=== PATIENT | female | born 1955 | race African-American/Black ===

== ENCOUNTER 2018-09-10 14:03 | Inpatient (IN) | payer OTHER ==
[2018-09-10 16:24] VITALS: BMI 26.6
--- NOTE | 2018-09-10 17:46 | HP ---
"CIWA Score Nausea/Vomitin-No Nausea/No Vomiting Muscle Tremors: None Anxiety: 1-Mildly Anxious Agitation: 1-Slight > Activity Paroxysmal Sweats: No Perspiration Orientation: 0-Oriented Tacttile Disturbances: 0-None Auditory Disturbances: 0-None Visual Disturbances: 0-None Headache: 2-Mild CIWA-Ar Total Score: 4 - Admission Criteria OASAS Guidelines: Admission for Medically Managed Detox: Requires at least one of the followin. CIWA greater than 12 2. Seizures within the past 24 hours 3. Delirium tremens within the past 24 hours 4. Hallucinations within the past 24 hours 5. Acute intervention needed for co occurring medical disorder 6. Acute intervention needed for co occurring psychiatric disorder 7. Severe withdrawal that cannot be handled at a lower level of care (continued vomiting, continued diarrhea, abnormal vital signs) requiring intravenous medication and/or fluids 8. Admission ROS [facility] Allergies/Adverse Reactions: Allergies Allergy/AdvReac Type Severity Reaction Status Date / Time benztropine [From Cogentin] Allergy Verified 09/10/18 17:40 naloxone [From Narcan] AdvReac Verified 09/10/18 17:40 History of Present Illness: patient reports drinking 4 x 40-oz/day , reports latest use yesterday evening , reports irritability if not drinking ,relapsed in 2005 with daily , denies seizures , blackouts , denies falls , starts drinking around 8 am . Denies other illicits . cocaine : 10 dimes/day tobacco : 1/2 ppd utox + anastasiia , + Mtd , + biup MMTP @ [facility] x 2 years PMhx : OA hips using walker for ambulation HLD, htn PSyxh : SAD Meds : Wellbutrin , Seroquel , clonidine, Norvasc i-stop This report was requested by: Jaclyn Hansen | Reference #: [id number] Others' Prescriptions Patient Name: Serena Lizarraga Date: 1955 Address: [address] [place] [address] Sex: Female Rx Written Rx Dispensed Drug Quantity Days Supply Prescriber Name 09/17/2017 09/18/2017 endocet 10-325 mg tablet 9 3 Soleimani, Alo Shx : homeless Exam Limitations: No Limitations, Physical Impairment - Ebola screening Have you traveled outside of the country in the last 21 days: No (N) Have you had contact with anyone from an Ebola affected area: No Have you been sick,other than usual withdrawal symptoms: No Do you have a fever: No - Review of Systems Constitutional: No Symptoms Reported EENT: reports: No Symptoms Reported, Other (missing teeth glasses- did not bring) Respiratory: reports: No Symptoms reported Cardiac: reports: No Symptoms Reported GI: reports: No Symptoms Reported : reports: Dysuria (reports has rx for UTI) Musculoskeletal: reports: Joint Pain (chronic hip pain) Integumentary: reports: No Symptoms Reported Neuro: reports: No Symptoms reported Endocrine: reports: No Symptoms Reported Psychiatric: reports: Orientated x3, Agitated, Anxious Patient History - Smoking Cessation Smoking history: Current every day smoker Have you smoked in the past 12 months: Yes Aproximately how many cigarettes per day: 10 Hx Chewing Tobacco Use: No Initiated information on smoking cessation: No Family Disease History - Family Disease History Family History: Denies Family Disease History: Heart Disease: Father (d.54), Other: Mother (d. 90), Brother (htn , d. 40 renal disease), Sister (htn), Daughter (DVT ) Admission Physical Exam [facility] - Vital Signs Vital Signs: Vital Signs - 24 hr 09/10/18 16:21 Temperature 97.7 F Pulse Rate 60 Respiratory 18 Rate Blood Pressure 122/84 - Physical General Appearance: Yes: Disheveled, Other (drowsy , falls asleep frequently during interview, easily awakened) HEENTM: Yes: EOMI, Hearing grossly Normal, Normal ENT Inspection, Normocephalic , Other (edentulous) Respiratory: Yes: Chest Non-Tender, Lungs Clear, Normal Breath Sounds Neck: Yes: No masses,lesions,Nodules, Trachea in good position Breast: Yes: Breast Exam Deferred Cardiology: Yes: Regular Rhythm, Regular Rate, S1, S2 Abdominal: Yes: Normal Bowel Sounds, Soft Genitourinary: Yes: Within Normal Limits Musculoskeletal: Yes: Joint Stiffness, Other (chronic hip pain , antalgic gait, using walker for ambulation and balance stability) Extremities: Yes: Normal Capillary Refill Neurological: Yes: Motor Strength 5/5, Other (drowsy) Integumentary: Yes: Within Normal Limits Lymphatic: Yes: Within Normal Limits - Diagnostic (1) Cocaine dependence Current Visit: Yes Status: Acute Qualifiers: Substance use status: uncomplicated Qualified Code(s): F14.20 - Cocaine dependence, uncomplicated [facility] Breath Alcohol Content Breath Alcohol Content: 0 Urine Pregancy Test - Result Urine Test Results: Negative- NO Line Present Urine Drug Screen - Results Drug Screen Negative: No Urine Drug Screen Results: ANASTASIIA-Cocaine, MTD-Methadone, BUP-Suboxone Inpatient Rehab Admission - Initial Determination Are CD services needed?: Yes Free of communicable disease: Yes Not in need of hospitalization: Yes - Rehab Admission Criteria Previous failed treatment: Yes Poor recovery environment: Yes Comorbidities: Yes Lacks judgement: Yes Patient is meeting Inpatient Rehab admission criteria:: Yes"
[2018-09-10] MEDS ORDERED: MAGNESIUM CITRATE 300 ML BOTTLE PO PRN (18:32)
[2018-09-10] MEDS ORDERED: MAGNESIUM HYDROX 2400MG/30ML ORAL SUSPENSION 30 ML CUP PO PRN (18:32)
[2018-09-10] MEDS ORDERED: ACETAMINOPHEN 325 MG TABLET (FP) PO PRN (18:32)
[2018-09-10] MEDS ORDERED: MENTHOL/PHENOL 1 EACH UD MM PRN (18:32)
[2018-09-10] MEDS ORDERED: guaiFENesin/D-METHORPHAN HB 10 ML UNIT-DOSE CUPS PO PRN (18:32)
[2018-09-10] MEDS ORDERED: MAG HYDROX/AL HYDROX/SIMETH 30 ML UNIT-DOSE CUP PO PRN (18:32)
[2018-09-11 01:35] LABS: URINE APPEARANCE SLCLOUDY; URINE BILIRUBIN NEGATIVE (<2.0 mg/dL); URINE COLOR DKYELLOW; URINE GLUCOSE (UA) NEGATIVE (NEGATIVE); URINE KETONE NEGATIVE (NEGATIVE); URINE LEUK ESTERASE TRACE (NEGATIVE); URINE NITRITE NEGATIVE (NEGATIVE); URINE PROTEIN NEGATIVE (NEGATIVE)
[2018-09-11 02:04] LABS: CALCIUM OXALATE CRYSTALS RARE /hpf (NONE SEEN); EPI CELLS RARE /HPF (FEW); URINE BACTERIA RARE /hpf (NONE SEEN); URINE HYALINE CAST 3 /lpf; URINE MUCUS RARE
[2018-09-11] MEDS ORDERED: cloNIDine HCL 0.1 MG TABLET PO ONE (06:44)
--- NOTE | 2018-09-11 06:45 | PN ---
S Progress Note Note: Patient's blood pressure is B/P 159/110. Patient is asymptomatic Vital Signs Temperature 97.5 F L 09/11/18 06:47 Pulse Rate 63 09/11/18 06:47 Respiratory Rate 18 09/11/18 06:47 Blood Pressure 159/110 H 09/11/18 06:47 O2 Sat by Pulse Oximetry (%) Action: Clonidine 0.1mg 1 tablet oral ordered
[2018-09-11] MEDS ORDERED: METHADONE HCL 10 MG TABLET PO SCH (07:15)
[2018-09-11] MEDS ORDERED: METHADONE HCL 10 MG TABLET ONE (07:24)
[2018-09-11] MEDS ORDERED: METHADONE HCL 40 MG DISPERSABLE TABLET ONE (07:24)
[2018-09-11] MEDS: METHADONE 120 MG, METHADONE 30 MG PO SCH (07:30)
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
[2018-09-11] MEDS: PRENATAL VITAMINS W/ FOLIC ACID TABLET (FP) PO SCH (10:00)
[2018-09-11] MEDS: hydrOXYzine PAMOATE 25 MG CAPSULE (FP) PO PRN (10:01)
[2018-09-11 14:55] LABS: HEMATOCRIT 36.5 % (32.4-45.2); HEMOGLOBIN 11.3 GM/dL (10.7-15.3); MCHC 31.1 g/dl (32.0-36.0); MEAN PLT VOLUME 9.5 fl (7.5-11.1); PLATELET COUNT 233 K/MM3 (134-434); RBC 4.05 M/mm3 (3.60-5.2); RDW 15.8 % (11.6-15.6); WHITE BLOOD COUNT 6.6 K/mm3 (4.0-10.0)
[2018-09-11 15:56] LABS: ALBUMIN 3.4 g/dl (3.4-5.0); ALK PHOS 152 U/L (45-117); ANION GAP 4 MMOL/L (8-16); BILIRUBIN,TOTAL 0.3 mg/dL (0.2-1); BLOOD UREA NITROGEN 13 mg/dL (7-18); CALCIUM 8.9 mg/dL (8.5-10.1); CHLORIDE 108 mmol/L (98-107); CO2 30 mmol/L (21-32); GLUCOSE,RANDOM 98 mg/dL (74-106); POTASSIUM 4.1 mmol/L (3.5-5.1); SGOT/AST 32 U/L (15-37); SGPT/ALT 33 U/L (13-61); SODIUM 142 mmol/L (136-145)
[2018-09-11 15:57] LABS: TOT PROT 6.8 g/dl (6.4-8.2)
[2018-09-11] MEDS: THIAMINE HCL 100 MG TABLET (FP) PO SCH (21:46)
[2018-09-11] MEDS: QUEtiapine FUMARATE 200 MG TABLET PO SCH (21:46)
[2018-09-12] MEDS: THIAMINE HCL 100 MG TABLET (FP) PO SCH ×2 (01:48→21:52)
[2018-09-12] MEDS ORDERED: METHADONE HCL 10 MG TABLET ONE (02:49)
[2018-09-12] MEDS ORDERED: METHADONE HCL 40 MG DISPERSABLE TABLET ONE (02:50)
[2018-09-12] MEDS: METHADONE 120 MG, METHADONE 30 MG PO SCH (06:36)
[2018-09-12] MEDS: amLODIPine BESYLATE 10 MG TABLET (FP) PO SCH (07:00)
--- NOTE | 2018-09-12 07:34 | PN ---
[facility] Progress Note Note: seen for elevated asymptomatic b/p. client reports she wants her clonidine. she also states other home meds were not ordered to include simvastatin, norvasc, asa. after reviewing client external pharmacy it appears client is dr. ramos for the clonidine. ? diversion due to multiple rx for clonidines for different doses written days apart from different providers is noted. d/w client will restart her rx for amlodipine, asa, and will give lipitor in replace of her simvastatin since it is non formulary (actually the external pharmacy shows that the patient is on lipitor 20mg not simvastatin 40 mg). client is concerned about her clonidine being abruptly stopped. d/w client provider is fully aware of the possible effects will will continue to monitor b/ p closely and treat accordingly. client is dissatisfied with providers decision and states she will follow up with the unit provider. Vital Signs (72 hours) 09/10/18 09/11/18 09/11/18 16:21 00:30 03:30 Temperature 97.7 F Pulse Rate 60 Respiratory 18 18 20 Rate Blood Pressure 122/84 09/11/18 09/11/18 09/11/18 06:47 07:11 09:00 Temperature 97.5 F L 97.5 F L Pulse Rate 63 63 50 L Respiratory 18 18 Rate Blood Pressure 159/110 H 159/110 H 119/73 09/12/18 09/12/18 09/12/18 00:30 03:30 07:28 Temperature 97.3 F L Pulse Rate 63 Respiratory 16 16 18 Rate Blood Pressure 153/111 H client is a/o x3 nad ambulating hallway with rolling walker w/o difficulty. she denies sob, c.p., visual disturbance and headache. will increase b/p monitoring to q shift
[2018-09-12] MEDS: ASPIRIN 81 MG CHEWABLE TABLETS PO SCH (10:03)
[2018-09-12] MEDS: PRENATAL VITAMINS W/ FOLIC ACID TABLET (FP) PO SCH (10:03)
[2018-09-12] MEDS: ATORVASTATIN CA 20 MG TABLET (FP) PO SCH (21:52)
[2018-09-12] MEDS: QUEtiapine FUMARATE 200 MG TABLET PO SCH (21:52)
[2018-09-12] MEDS: hydrOXYzine PAMOATE 25 MG CAPSULE (FP) PO PRN (21:52)
[2018-09-13] MEDS ORDERED: METHADONE HCL 10 MG TABLET ONE (03:44)
[2018-09-13] MEDS ORDERED: METHADONE HCL 40 MG DISPERSABLE TABLET ONE (03:45)
[2018-09-13] MEDS: METHADONE 120 MG, METHADONE 30 MG PO SCH (06:03)
[2018-09-13] MEDS: PRENATAL VITAMINS W/ FOLIC ACID TABLET (FP) PO SCH (10:25)
[2018-09-13] MEDS: hydrOXYzine PAMOATE 25 MG CAPSULE (FP) PO PRN ×2 (10:25→21:37)
[2018-09-13] MEDS: ASPIRIN 81 MG CHEWABLE TABLETS PO SCH (10:25)
[2018-09-13] MEDS: amLODIPine BESYLATE 10 MG TABLET (FP) PO SCH (10:25)
[2018-09-13] MEDS ORDERED: PT OWN MED DRAWER 7, Y5N ONE ×6 (11:09→14:49)
[2018-09-13] MEDS: THIAMINE HCL 100 MG TABLET (FP) PO SCH (21:31)
[2018-09-13] MEDS: ATORVASTATIN CA 20 MG TABLET (FP) PO SCH (21:31)
[2018-09-13] MEDS: QUEtiapine FUMARATE 200 MG TABLET PO SCH (21:31)
[2018-09-13] MEDS: cloNIDine HCL 0.1 MG TABLET PO PRN (21:35)
[2018-09-14] MEDS ORDERED: METHADONE HCL 40 MG DISPERSABLE TABLET ONE (03:12)
[2018-09-14] MEDS ORDERED: METHADONE HCL 10 MG TABLET ONE (03:12)
[2018-09-14] MEDS: METHADONE 120 MG, METHADONE 30 MG PO SCH (06:06)
[2018-09-14] MEDS: cloNIDine HCL 0.1 MG TABLET PO PRN ×2 (10:10→21:25)
[2018-09-14] MEDS: hydrOXYzine PAMOATE 25 MG CAPSULE (FP) PO PRN ×2 (10:10→21:25)
[2018-09-14] MEDS: PRENATAL VITAMINS W/ FOLIC ACID TABLET (FP) PO SCH (10:10)
[2018-09-14] MEDS: amLODIPine BESYLATE 10 MG TABLET (FP) PO SCH (10:10)
[2018-09-14] MEDS: ASPIRIN 81 MG CHEWABLE TABLETS PO SCH (10:10)
[2018-09-14] MEDS ORDERED: PT OWN MED DRAWER 7, Y5N ONE (10:43)
[2018-09-14] MEDS: QUEtiapine FUMARATE 200 MG TABLET PO SCH (21:25)
[2018-09-14] MEDS: ATORVASTATIN CA 20 MG TABLET (FP) PO SCH (21:25)
[2018-09-14] MEDS: THIAMINE HCL 100 MG TABLET (FP) PO SCH (21:26)
--- NOTE | 2018-09-14 21:46 | PN ---
S Progress Note Note: Patient requesting to be returned to CloNidine 0.2 mg as prescribed by her PCP instead of 0.1. Reviewed vital signs and medication management. Patient informed that CloNidine will be held if SBP falls below 110. Patient verbalizes an understanding.
[2018-09-14] MEDS: cloNIDine HCL 0.1 MG TABLET PO SCH (22:12)
[2018-09-15] MEDS ORDERED: METHADONE HCL 10 MG TABLET ONE (02:41)
[2018-09-15] MEDS ORDERED: METHADONE HCL 40 MG DISPERSABLE TABLET ONE (02:41)
[2018-09-15] MEDS: METHADONE 120 MG, METHADONE 30 MG PO SCH (06:10)
[2018-09-15] MEDS: cloNIDine HCL 0.1 MG TABLET PO SCH ×2 (09:48→21:28)
[2018-09-15] MEDS: ASPIRIN 81 MG CHEWABLE TABLETS PO SCH (09:48)
[2018-09-15] MEDS: PRENATAL VITAMINS W/ FOLIC ACID TABLET (FP) PO SCH (09:48)
[2018-09-15] MEDS: amLODIPine BESYLATE 10 MG TABLET (FP) PO SCH (09:48)
[2018-09-15] MEDS: hydrOXYzine PAMOATE 25 MG CAPSULE (FP) PO PRN ×2 (09:48→21:28)
[2018-09-15] MEDS: THIAMINE HCL 100 MG TABLET (FP) PO SCH (21:28)
[2018-09-15] MEDS: QUEtiapine FUMARATE 200 MG TABLET PO SCH (21:28)
[2018-09-15] MEDS: ATORVASTATIN CA 20 MG TABLET (FP) PO SCH (21:28)
[2018-09-16] MEDS ORDERED: METHADONE HCL 40 MG DISPERSABLE TABLET ONE (02:38)
[2018-09-16] MEDS ORDERED: METHADONE HCL 10 MG TABLET ONE (02:38)
[2018-09-16] MEDS: METHADONE 120 MG, METHADONE 30 MG PO SCH (06:13)
[2018-09-16] MEDS: hydrOXYzine PAMOATE 25 MG CAPSULE (FP) PO PRN ×3 (06:15→22:14)
[2018-09-16] MEDS ORDERED: cloNIDine HCL 0.1 MG TABLET PO ONE ×2 (07:53→07:54)
--- NOTE | 2018-09-16 07:59 | PN ---
[facility] Progress Note Note: Patient's blood pressure at 6.00am was B/P 158/96. Patient was medicated and informed to recheck blood pressure. Patient's blood pressure was rechecked and is mow B/P 164/108. Vital Signs 09/16/18 09/16/18 09/16/18 03:18 06:00 07:25 Temperature 97.6 F Pulse Rate 62 73 Respiratory 18 18 18 Rate Blood Pressure 158/96 160/108 H Action: Clonidine 0.2mg tablet oral ordered.
[2018-09-16] MEDS: ASPIRIN 81 MG CHEWABLE TABLETS PO SCH (09:49)
[2018-09-16] MEDS: amLODIPine BESYLATE 10 MG TABLET (FP) PO SCH (09:49)
[2018-09-16] MEDS: PRENATAL VITAMINS W/ FOLIC ACID TABLET (FP) PO SCH (09:49)
[2018-09-16] MEDS: cloNIDine HCL 0.1 MG TABLET PO SCH ×2 (09:49→22:13)
--- NOTE | 2018-09-16 13:42 | PN ---
[facility] Progress Note Note: Patient told telegraphic typewriter repairer that she was on Seroquel 200 mg po BID before admission and requests that her medication dosage be adjusted to reflect that
[2018-09-16] MEDS: QUEtiapine FUMARATE 200 MG TABLET PO SCH ×2 (15:01→22:13)
[2018-09-16] MEDS: THIAMINE HCL 100 MG TABLET (FP) PO SCH (22:12)
[2018-09-16] MEDS: ATORVASTATIN CA 20 MG TABLET (FP) PO SCH (22:13)
[2018-09-16] MEDS ORDERED: PT OWN MED DRAWER 7, Y5N ONE (23:13)
[2018-09-17] MEDS ORDERED: METHADONE HCL 40 MG DISPERSABLE TABLET ONE (06:31)
[2018-09-17] MEDS ORDERED: METHADONE HCL 10 MG TABLET ONE (06:31)
[2018-09-17] MEDS: METHADONE 120 MG, METHADONE 30 MG PO SCH (06:47)
[2018-09-17] MEDS: hydrOXYzine PAMOATE 25 MG CAPSULE (FP) PO PRN ×3 (06:52→21:19)
[2018-09-17] MEDS: cloNIDine HCL 0.1 MG TABLET PO SCH ×2 (09:08→21:17)
[2018-09-17] MEDS: ASPIRIN 81 MG CHEWABLE TABLETS PO SCH (09:08)
[2018-09-17] MEDS: PRENATAL VITAMINS W/ FOLIC ACID TABLET (FP) PO SCH (09:08)
[2018-09-17] MEDS: QUEtiapine FUMARATE 200 MG TABLET PO SCH ×2 (09:08→21:17)
[2018-09-17] MEDS: amLODIPine BESYLATE 10 MG TABLET (FP) PO SCH (09:08)
[2018-09-17] MEDS: P-EPHED 60MG/TRIPROLIDI 2.5MG TABLET PO PRN ×2 (09:12→21:20)
[2018-09-17] MEDS ORDERED: PT OWN MED DRAWER 7, Y5N ONE ×2 (09:14→09:51)
--- NOTE | 2018-09-17 14:22 | PN ---
[facility] Progress Note Note: PT TOLD NURSE SHE WANTS TO TALK ABOUT UTI. PT DID NOT REPORT ANY SPECIFIC SYMPTOM AT THIS TIME. Vital Signs 09/17/18 09/17/18 09/17/18 06:58 09:13 14:07 Temperature 97.5 F L Pulse Rate 79 62 67 Respiratory 18 18 17 Rate Blood Pressure 166/98 167/94 123/80 Laboratory Tests 09/10/18 09/11/18 09/11/18 23:45 09:30 09:30 WBC 6.6 RBC 4.05 Hgb 11.3 Hct 36.5 MCV 90.0 MCH 28.0 MCHC 31.1 L RDW 15.8 H Plt Count 233 MPV 9.5 Sodium 142 Potassium 4.1 Chloride 108 H Carbon Dioxide 30 Anion Gap 4 L BUN 13 Creatinine 1.0 Creat Clearance w eGFR 55.82 Random Glucose 98 Calcium 8.9 Total Bilirubin 0.3 AST 32 ALT 33 Alkaline Phosphatase 152 H Total Protein 6.8 Albumin 3.4 Urine Color Dkyellow Urine Appearance Slcloudy Urine pH 6.0 Ur Specific [place] 1.015 Urine Protein Negative Urine Glucose (UA) Negative Urine Ketones Negative Urine Blood Negative Urine Nitrite Negative Urine Bilirubin Negative Urine Urobilinogen 2.0 H Ur Leukocyte Esterase Trace Urine WBC (Auto) 2 Urine RBC (Auto) 2 Ur Epithelial Cells Rare Calcium Oxalate Crystal Rare Urine Bacteria Rare Hyaline Casts 3 Urine Mucus Rare RPR Titer 09/11/18 09:30 WBC RBC Hgb Hct MCV MCH MCHC RDW Plt Count MPV Sodium Potassium Chloride Carbon Dioxide Anion Gap BUN Creatinine Creat Clearance w eGFR Random Glucose Calcium Total Bilirubin AST ALT Alkaline Phosphatase Total Protein Albumin Urine Color Urine Appearance Urine pH Ur Specific [place] Urine Protein Urine Glucose (UA) Urine Ketones Urine Blood Urine Nitrite Urine Bilirubin Urine Urobilinogen Ur Leukocyte Esterase Urine WBC (Auto) Urine RBC (Auto) Ur Epithelial Cells Calcium Oxalate Crystal Urine Bacteria Hyaline Casts Urine Mucus RPR Titer Nonreactive LAB REVIEWED ABOVE. PLAN: PT TO REPEAT UA, AND DO UC TO R/O UTI PER PT'S CONCERN.
[2018-09-17] MEDS ORDERED: PANTOPRAZOLE 40 MG TABLET (FP) PO ONE (15:15)
[2018-09-17] MEDS: IBUPROFEN 400 MG TABLET (FP) PO PRN (15:31)
[2018-09-17] MEDS: THIAMINE HCL 100 MG TABLET (FP) PO SCH (21:16)
[2018-09-17] MEDS: ATORVASTATIN CA 20 MG TABLET (FP) PO SCH (21:17)
[2018-09-18] MEDS ORDERED: METHADONE HCL 10 MG TABLET ONE (03:09)
[2018-09-18] MEDS ORDERED: METHADONE HCL 40 MG DISPERSABLE TABLET ONE (03:09)
[2018-09-18] MEDS: METHADONE 120 MG, METHADONE 30 MG PO SCH (06:13)
[2018-09-18] MEDS: cloNIDine HCL 0.1 MG TABLET PO SCH ×2 (06:14→18:07)
[2018-09-18] MEDS: amLODIPine BESYLATE 10 MG TABLET (FP) PO SCH (09:41)
[2018-09-18] MEDS: QUEtiapine FUMARATE 200 MG TABLET PO SCH ×2 (09:41→21:05)
[2018-09-18] MEDS: PRENATAL VITAMINS W/ FOLIC ACID TABLET (FP) PO SCH (09:42)
[2018-09-18] MEDS: PANTOPRAZOLE 40 MG TABLET (FP) PO SCH (09:42)
[2018-09-18] MEDS: ASPIRIN 81 MG CHEWABLE TABLETS PO SCH (09:42)
[2018-09-18] MEDS: hydrOXYzine PAMOATE 25 MG CAPSULE (FP) PO PRN ×2 (09:44→18:09)
[2018-09-18] MEDS: P-EPHED 60MG/TRIPROLIDI 2.5MG TABLET PO PRN (09:45)
[2018-09-18 17:44] LABS: URINE APPEARANCE CLEAR; URINE BILIRUBIN NEGATIVE (<2.0 mg/dL); URINE COLOR LTYELLOW; URINE GLUCOSE (UA) NEGATIVE (NEGATIVE); URINE KETONE NEGATIVE (NEGATIVE); URINE LEUK ESTERASE NEGATIVE (NEGATIVE); URINE NITRITE NEGATIVE (NEGATIVE); URINE PROTEIN NEGATIVE (NEGATIVE); URINE UROBILINOGEN NEGATIVE mg/dL (0.2-1.0)
[2018-09-18] MEDS: IBUPROFEN 400 MG TABLET (FP) PO PRN (18:10)
[2018-09-18] MEDS: ATORVASTATIN CA 20 MG TABLET (FP) PO SCH (21:05)
[2018-09-18] MEDS: THIAMINE HCL 100 MG TABLET (FP) PO SCH (21:05)
[2018-09-18] MEDS: MELATONIN 5 MG TABLETS PO PRN (21:06)
[2018-09-19] MEDS ORDERED: METHADONE HCL 10 MG TABLET ONE (03:21)
[2018-09-19] MEDS ORDERED: METHADONE HCL 40 MG DISPERSABLE TABLET ONE (03:21)
[2018-09-19] MEDS: METHADONE 120 MG, METHADONE 30 MG PO SCH (06:11)
[2018-09-19] MEDS: cloNIDine HCL 0.1 MG TABLET PO SCH ×2 (06:12→18:09)
[2018-09-19] MEDS: IBUPROFEN 400 MG TABLET (FP) PO PRN (06:13)
[2018-09-19] MEDS: ASPIRIN 81 MG CHEWABLE TABLETS PO SCH (09:26)
[2018-09-19] MEDS: QUEtiapine FUMARATE 200 MG TABLET PO SCH ×2 (09:27→21:18)
[2018-09-19] MEDS: amLODIPine BESYLATE 10 MG TABLET (FP) PO SCH (09:27)
[2018-09-19] MEDS: PANTOPRAZOLE 40 MG TABLET (FP) PO SCH (09:27)
[2018-09-19] MEDS: PRENATAL VITAMINS W/ FOLIC ACID TABLET (FP) PO SCH (09:27)
[2018-09-19] MEDS: hydrOXYzine PAMOATE 25 MG CAPSULE (FP) PO PRN ×2 (09:28→18:09)
[2018-09-19] MEDS: P-EPHED 60MG/TRIPROLIDI 2.5MG TABLET PO PRN ×2 (09:29→21:18)
--- NOTE | 2018-09-19 10:46 | PN ---
Psychiatric Progress Note Vital Signs: Vital Signs Period Temp Pulse Resp BP Sys/Roque Pulse Ox Last 24 Hr 97.7 F 67-79 -18 148-191/90-102 Date of Session: 09/19/18 Chief Complaint:: Discharge Note HPI: Patient addressing Alcohol and Cocaine Dependence comorbid with Opioid Dependence on Agonist Therapy, Nicotine Dependence, Schizoaffective Disorder, Substance-Induced Mood Disorder and Substance-Induced Sleep Disorder ROS: HTN, HLD, Osteoarthritis of both hips Current Medications: Active Medications Generic Name Dose Route Start Last Admin Trade Name Freq PRN Reason Stop Dose Admin Acetaminophen 650 mg 09/10/18 18:32 Tylenol - PO Q4H PRN FEVER Al Hydroxide/Mg Hydroxide 30 ml 09/10/18 18:32 Mylanta Oral Suspension - PO Q6H PRN DYSPEPSIA Amlodipine Besylate 10 mg 09/12/18 07:00 09/19/18 09:27 Norvasc - PO 10 mg DAILY ARGELIA Administration Aspirin 81 mg 09/12/18 10:00 09/19/18 09:26 Asa - PO 81 mg DAILY ARGELIA Administration Atorvastatin Calcium 20 mg 09/12/18 22:00 09/18/18 21:05 Lipitor - PO 20 mg HS ARGELIA Administration Bupropion HCl 300 mg 09/11/18 14:00 09/19/18 09:27 Wellbutrin Xl - PO 300 mg DAILY ARGELIA Administration Clonidine 0.2 mg 09/18/18 06:00 09/19/18 06:12 Catapres - PO 0.2 mg BID@0600,1800 ARGELIA Administration Eucalyptus/Menthol/Phenol/Sorbitol 1 each 09/10/18 18:32 Cepastat Lozenge - MM Q4H PRN SORE THROAT Guaifenesin 10 ml 09/10/18 18:32 Robitussin Dm - PO Q6H PRN COUGH Hydroxyzine Pamoate 25 mg 09/10/18 18:32 09/19/18 09:28 Vistaril - PO 25 mg Q4H PRN Administration AGITATION Ibuprofen 400 mg 09/10/18 18:32 09/19/18 06:13 Motrin - PO 400 mg Q6H PRN Administration Pain level 4-6 Magnesium Citrate 300 ml 09/10/18 18:32 Citroma - PO Q48H PRN CONSTIPATION Magnesium Hydroxide 30 ml 09/10/18 18:32 Milk Of Magnesia - PO DAILY PRN CONSTIPATION Melatonin 5 mg 09/10/18 22:00 09/18/18 21:06 Melatonin PO 5 mg HS PRN Administration INSOMNIA Methadone HCl 120 mg/ 150 mg 09/17/18 06:00 09/19/18 06:11 Methadone HCl 30 mg PO 150 mg DAILY@0600 ARGELIA Administration Pantoprazole Sodium 40 mg 09/18/18 10:00 09/19/18 09:27 Protonix - PO 40 mg DAILY ARGELIA Administration Multivit/Folic Acid/Iron 1 tab 09/11/18 10:00 09/19/18 09:27 Vitamins (Sjr) - PO 1 tab DAILY ARGELIA Administration Pseudoephedrine/Triprolidine 1 combo 09/10/18 18:32 09/19/18 09:29 Actifed - PO 1 combo TID PRN Administration NASAL CONGESTION Quetiapine Fumarate 200 mg 09/16/18 14:40 09/19/18 09:27 Seroquel - PO 200 mg BID ARGELIA Administration Thiamine HCl 100 mg 09/10/18 22:00 09/18/18 21:05 Vitamin B1 - PO 100 mg HS ARGELIA Administration Current Side Effect: No Lab tests ordered: Yes Lab tests reviewed: Yes Provider note:: Patient will complete this program on 09/20/18. She has met her treatment goals and will continue to address her issues in outpatient treatment at [facility]. Told rewriter that from her participation in this program, she has learned that she can fight her addiction if she puts her mind to it. She responded well to Seroquel 200 mg po BID and Wellbutrin Xl 300 mg po daily. Scripts for 30 days supply of these medications will be electronically transmitted to [facility] at [address] [place] [address]. She is stable for discharge on 09/20/18 Total face to face time:: 35 Mental Status Exam - Mental Status Exam Alert and Oriented to: Time, Place, Person Cognitive Function: Fair Patient Appearance: Well Groomed Mood: Hopeful, Euthymic Affect: Appropriate Patient Behavior: Cooperative Speech Pattern: Clear Voice Loudness: Normal Thought Process: Intact, Goal Oriented Thought Disorder: Not Present Hallucinations: Denies Suicidal Ideation: Denies Homicidal Ideation: Denies Insight/Judgement: Fair Sleep: Fair Appetite: Good Muscle strength/Tone: Normal Gait/Station: Other (uses a wheeled walker as ambulatory aid) Psychiatric Treatment Plan - Problem List (1) Alcohol dependence Current Visit: Yes (2) Cocaine dependence Current Visit: Yes Qualifiers: Substance use status: uncomplicated Qualified Code(s): F14.20 - Cocaine dependence, uncomplicated (3) Nicotine dependence Current Visit: Yes (4) Schizoaffective disorder Current Visit: Yes (5) Substance induced mood disorder Current Visit: Yes (6) Substance-induced sleep disorder Current Visit: Yes (7) HTN (hypertension) Current Visit: Yes (8) HLD (hyperlipidemia) Current Visit: Yes (9) Osteoarthritis of both hips Current Visit: Yes Initial treatment plan: Patient will be discharged tomorrow and referred to [facility] for [facility] treatment
[2018-09-19] MEDS: DICLOFENAC SODIUM 75 MG TABLET.DR PO SCH ×2 (18:20→21:19)
--- NOTE | 2018-09-19 19:43 | PN ---
[facility] Progress Note (SOAP) Subjective: c/o (R) hip pain. States it's worse. States pain is sharp, continuous and a "10 ". Discussed pain management medications and patient feels that diclofenac would work well for her. BLE edema pitting toes to below knees. Pedal pulses (+). States is aware that legs are swollen but refused a water pill when suggested by this provider, despite being informed of the benefits. Continue to use walker for mobility.
--- NOTE | 2018-09-19 19:46 | PN ---
S Progress Note Note: c/o (R) hip pain. States it's worse. States pain is sharp, continuous and a "10 ". Discussed pain management medications and patient feels that diclofenac would work well for her. BLE edema pitting toes to below knees. Pedal pulses (+). States is aware that legs are swollen but refused a water pill when suggested by this provider, despite being informed of the benefits. Continue to use walker for mobility. Continue low sodium diet. Continue rehab.
[2018-09-19] MEDS: THIAMINE HCL 100 MG TABLET (FP) PO SCH (21:17)
[2018-09-19] MEDS: MELATONIN 5 MG TABLETS PO PRN (21:17)
[2018-09-19] MEDS: ATORVASTATIN CA 20 MG TABLET (FP) PO SCH (21:18)
[2018-09-20] MEDS ORDERED: METHADONE HCL 40 MG DISPERSABLE TABLET ONE (05:48)
[2018-09-20] MEDS ORDERED: METHADONE HCL 10 MG TABLET ONE (05:48)
[2018-09-20] MEDS: METHADONE 120 MG, METHADONE 30 MG PO SCH (06:00)
[2018-09-20] MEDS: cloNIDine HCL 0.1 MG TABLET PO SCH (06:00)
[2018-09-20] MEDS: hydrOXYzine PAMOATE 25 MG CAPSULE (FP) PO PRN (06:04)
[2018-09-20 06:58] VITALS: TEMP 97.3
[2018-09-20] MEDS ORDERED: PT OWN MED DRAWER 7, Y5N ONE (08:13)
[2018-09-20] MEDS: DICLOFENAC SODIUM 75 MG TABLET.DR PO SCH (09:03)
[2018-09-20] MEDS: amLODIPine BESYLATE 10 MG TABLET (FP) PO SCH (09:04)
[2018-09-20] MEDS: PRENATAL VITAMINS W/ FOLIC ACID TABLET (FP) PO SCH (09:04)
[2018-09-20] MEDS: PANTOPRAZOLE 40 MG TABLET (FP) PO SCH (09:04)
[2018-09-20] MEDS: QUEtiapine FUMARATE 200 MG TABLET PO SCH (09:04)
[2018-09-20] MEDS: ASPIRIN 81 MG CHEWABLE TABLETS PO SCH (09:04)
[2018-09-20 09:06] VITALS: BP 156/88; PULSE 80
== END 2018-09-20 09:06 | disposition home or self-care (01) | DRG 772 ==
LOC: YASAS 14:03 → Y3W 18:56 → Y3E 09-16 22:32
PROVIDERS: ADMIT Psychiatry & Neurology Psychiatry; ATTEND Psychiatry & Neurology Psychiatry
PROC: HZ42ZZZ Group Counseling for Substance Abuse Treatment, Cognitive-Behavioral (ICD-10-PCS; principal; 2018-09-10)
DX: F10.20 Alcohol dependence, uncomplicated (principal); F14.20 Cocaine dependence, uncomplicated; F17.210 Nicotine dependence, cigarettes, uncomplicated; F25.9 Schizoaffective disorder, unspecified; F19.24 Other psychoactive substance dependence with psychoactive substance-induced mood disorder; F19.282 Other psychoactive substance dependence with psychoactive substance-induced sleep disorder; I10 Essential (primary) hypertension; E78.5 Hyperlipidemia, unspecified; M16.0 Bilateral primary osteoarthritis of hip; M25.551 Pain in right hip; R60.9 Edema, unspecified; J45.909 Unspecified asthma, uncomplicated; Z88.8 Allergy status to other drugs, medicaments and biological substances
CPT/HCPCS: 36415; 80053; 81003; 81015; 85027; 86593; 87086; J0735

== ENCOUNTER 2018-10-17 16:02 | Inpatient (IN) | payer OTHER ==
[2018-10-17 17:54] VITALS: BMI 27.4
--- NOTE | 2018-10-17 18:27 | HP ---
CIWA Score Nausea/Vomitin-Mild Nausea/No Vomiting Muscle Tremors: 2 Anxiety: 2 Agitation: 2 Paroxysmal Sweats: 2 Orientation: 1-Uncertain about Date Tacttile Disturbances: 1-Very Mild Itch/Numbness Auditory Disturbances: 1-Very Mild Visual Disturbances: 1-Very Mild Sensitivity Headache: 1-Very Mild CIWA-Ar Total Score: 14 - Admission Criteria [facility]ASAS Guidelines: Admission for Medically Managed Detox: Requires at least one of the followin. CIWA greater than 12 2. Seizures within the past 24 hours 3. Delirium tremens within the past 24 hours 4. Hallucinations within the past 24 hours 5. Acute intervention needed for co occurring medical disorder 6. Acute intervention needed for co occurring psychiatric disorder 7. Severe withdrawal that cannot be handled at a lower level of care (continued vomiting, continued diarrhea, abnormal vital signs) requiring intravenous medication and/or fluids 8. Admission ROS [facility] Chief Complaint: WITHDRAWAL SYMPTOMS Allergies/Adverse Reactions: Allergies Allergy/AdvReac Type Severity Reaction Status Date / Time benztropine [From Cogentin] Allergy Verified 09/10/18 17:40 naloxone [From Narcan] AdvReac Verified 09/10/18 17:40 History of Present Illness: 53 Y.O. WOMAN WITH A HISTORY ALCOHOL AND COCAINE DEPENDENCE IS HERE SEEKING DETOX SERVICES. SHE REPORTS SHE LAST COMPLETED DETOX IN 2010. SHE WAS LAST HERE FOR REHAB FROM 09/10/18-08/2818. SHE IS CURRENTLY ENROLLED AT [facility]; SHE STATES SHE LAST MEDICATED TODAY (10/17/18) WITH 150MG OF METHADONE. Exam Limitations: Physical Impairment (AMBULATES WITH THE USE OF A WALKER) - Ebola screening Have you traveled outside of the country in the last 21 days: No Have you had contact with anyone from an Ebola affected area: No Have you been sick,other than usual withdrawal symptoms: No Do you have a fever: No - Review of Systems Constitutional: Chills EENT: reports: Double Vision, Tearing, Nose Congestion Respiratory: reports: No Symptoms reported Cardiac: reports: No Symptoms Reported GI: reports: No Symptoms Reported : reports: No Symptoms Reported Musculoskeletal: reports: No Symptoms Reported Integumentary: reports: No Symptoms Reported Neuro: reports: Tremors Endocrine: reports: No Symptoms Reported Hematology: reports: No Symptoms Reported Psychiatric: reports: Anxious, other (SCHIZOPHRENIA) Other Systems: Reviewed and Negative Patient History - Patient Medical History Hx Anemia: Yes Hx Asthma: No Hx Chronic Obstructive Pulmonary Disease (COPD): No Hx Cancer: No Hx Cardiac Disorders: No Hx Congestive Heart Failure: No Hx Hypertension: Yes Hx Hypercholesterolemia: Yes Hx Pacemaker: No HX Cerebrovascular Accident: No Hx Seizures: No Hx Dementia: No Hx Diabetes: No Hx Gastrointestinal Disorders: Yes Hx Liver Disease: No Hx Genitourinary Disorders: No Hx Sexually Transmitted Disorders: No Hx Renal Disease (ESRD): No Hx Thyroid Disease: No Hx Human Immunodeficiency Virus (HIV): No Hx Hepatitis C: Yes (UNTREATED) Hx Depression: No Hx Suicide Attempt: No Hx Bipolar Disorder: No Hx Schizophrenia: Yes - Patient Surgical History Past Surgical History: Yes Hx Orthopedic Surgery: Yes (RIGHT KNEE 1993) Anesthesia Reaction: No - PPD History Previous Implant?: Yes Documented Results: Negative w/proof Implanted On Prior [facility] Admission?: Yes Date: 09/13/18 Results: 0 PPD to be Administered?: No - Reproductive History Patient is a Female of Child Bearing Age (11 -55 yrs old): No Patient : No - Smoking Cessation Smoking history: Current every day smoker Have you smoked in the past 12 months: Yes Aproximately how many cigarettes per day: 5 Hx Chewing Tobacco Use: No Initiated information on smoking cessation: Yes 'Breaking Loose' booklet given: 10/17/18 - Substance & Tx. History Hx Alcohol Use: Yes Hx Substance Use: Yes Substance Use Type: Alcohol, Cocaine Hx Substance Use Treatment: Yes (DETOX: 2010 REHAB:08/2018) - Substances Abused Alcohol Frequency: 3-6 times per week Amount used: 2 40OZ OF BEER Age of first use: 11 Date of Last Use: 10/15/18 Cocaine Route: Smoking Frequency: 3-6 times per week Amount used: $20 Age of first use: 14 Date of Last Use: 10/15/18 Family Disease History - Family Disease History Family Disease History: Heart Disease: Father (d.54), Other: Mother (d. 90), Brother (htn , d. 40 renal disease), Sister (htn), Daughter (DVT ) Admission Physical Exam BHS - Vital Signs Vital Signs: Vital Signs - 24 hr 10/17/18 17:49 Temperature 97.7 F Pulse Rate 64 Respiratory 18 Rate Blood Pressure 110/80 - Physical General Appearance: Yes: Anxious HEENTM: Yes: Hearing grossly Normal, Normocephalic, Normal Voice Respiratory: Yes: Chest Non-Tender, Lungs Clear, Normal Breath Sounds Neck: Yes: No masses,lesions,Nodules Breast: Yes: Breast Exam Deferred Cardiology: Yes: Regular Rhythm, Regular Rate Abdominal: Yes: Non Tender, Flat, Soft Genitourinary: Yes: Other (NO COMPLAINTS REPORTED) Back: Yes: Normal Inspection Musculoskeletal: Yes: Other (UNSTEADY GAIT; AMBULATES WITH THE USE OF A WALKER) Extremities: Yes: Tremors Neurological: Yes: Alert, Normal Mood/Affect, Normal Response Integumentary: Yes: Normal Color, Dry, Warm Lymphatic: Yes: Within Normal Limits - Diagnostic (1) Opioid dependence on agonist therapy Current Visit: Yes Status: Chronic (2) Alcohol dependence Current Visit: Yes Status: Chronic (3) Cocaine dependence Current Visit: Yes Status: Chronic Qualifiers: Substance use status: uncomplicated Qualified Code(s): F14.20 - Cocaine dependence, uncomplicated (4) HLD (hyperlipidemia) Current Visit: Yes Status: Chronic (5) HTN (hypertension) Current Visit: Yes Status: Chronic (6) Nicotine dependence Current Visit: Yes Status: Chronic (7) Osteoarthritis of both hips Current Visit: Yes Status: Chronic (8) Asthma Current Visit: Yes Status: Chronic (9) Neuropathy Current Visit: Yes Status: Chronic (10) GERD (gastroesophageal reflux disease) Current Visit: Yes Status: Chronic (11) Unsteady gait Current Visit: Yes Status: Chronic (12) Uses roller walker Current Visit: Yes Status: Chronic Cleared for Admission [facility] - Detox or Rehab [facility] Level of Care: Medically Managed Detox Regimen/Protocol: Librium [facility] Breath Alcohol Content Breath Alcohol Content: 0 Urine Pregancy Test - Result Urine Test Results: Negative- NO Line Present Urine Drug Screen - Results Drug Screen Negative: No Urine Drug Screen Results: JASSI-Cocaine, MTD-Methadone
[2018-10-17] MEDS ORDERED: P-EPHED 60MG/TRIPROLIDI 2.5MG TABLET PO PRN (18:33)
[2018-10-17] MEDS ORDERED: IBUPROFEN 400 MG TABLET (FP) PO PRN (18:33)
[2018-10-17] MEDS ORDERED: guaiFENesin/D-METHORPHAN HB 10 ML UNIT-DOSE CUPS PO PRN (18:33)
[2018-10-17] MEDS ORDERED: MAGNESIUM HYDROX 2400MG/30ML ORAL SUSPENSION 30 ML CUP PO PRN (18:33)
[2018-10-17] MEDS ORDERED: MAG HYDROX/AL HYDROX/SIMETH 30 ML UNIT-DOSE CUP PO PRN (18:33)
[2018-10-17] MEDS ORDERED: chlordiazePOXIDE HCL 25 MG CAPSULE PO PRN (18:33)
[2018-10-17] MEDS ORDERED: MAGNESIUM CITRATE 300 ML BOTTLE PO PRN (18:33)
[2018-10-17] MEDS ORDERED: LOPERAMIDE HCL 2 MG CAPSULE PO PRN (18:33)
[2018-10-17] MEDS ORDERED: ACETAMINOPHEN 325 MG TABLET (FP) PO PRN (18:33)
[2018-10-17] MEDS ORDERED: MENTHOL/PHENOL 1 EACH UD MM PRN (18:33)
[2018-10-17] MEDS ORDERED: ALBUTEROL SO4 8 GM HFA INHALER IH PRN (18:44)
[2018-10-17] MEDS: ATORVASTATIN CA 20 MG TABLET (FP) PO SCH (21:12)
[2018-10-17] MEDS: GABAPENTIN 300 MG CAPSULE (FP) PO SCH (21:12)
[2018-10-17] MEDS: THIAMINE HCL 100 MG TABLET (FP) PO SCH (21:12)
[2018-10-17] MEDS ORDERED: MELATONIN 5 MG TABLETS PO PRN (22:00)
[2018-10-17] MEDS: chlordiazePOXIDE HCL 25 MG CAPSULE PO SCH (22:27)
--- NOTE | 2018-10-18 00:09 | PN ---
[facility] Progress Note Note: I was informed by Ms. Светлана Barroso RN that patient hit the right side of her eyebrow on the bedside table while she tried to get up from her bed. Patient was seen and examined in bed. Swelling to right eye brow noted. Patient denies head ache, pain and to be evaluated in ER. No laceration or wound noted or reported. Will monitor patient. Vital Signs 10/18/18 10/18/18 10/18/18 00:30 03:30 06:26 Temperature 95.9 F L Pulse Rate 69 Respiratory 18 18 18 Rate Blood Pressure 139/98 Action: Aplly ice/cold compress to right brow Tylenol 325mg 1 tablet oral Q6H PRN
[2018-10-18] MEDS: GABAPENTIN 300 MG CAPSULE (FP) PO SCH ×3 (06:16→22:03)
[2018-10-18] MEDS: chlordiazePOXIDE HCL 25 MG CAPSULE PO SCH ×2 (06:16→10:05)
[2018-10-18] MEDS ORDERED: METHADONE HCL 10 MG TABLET PO SCH (07:15)
[2018-10-18] MEDS ORDERED: METHADONE PO SCH (07:30)
[2018-10-18] MEDS ORDERED: METHADONE HCL 10 MG TABLET ONE ×2 (07:36→07:46)
[2018-10-18] MEDS ORDERED: METHADONE HCL 40 MG DISPERSABLE TABLET ONE (07:47)
[2018-10-18] MEDS: METHADONE 120 MG, METHADONE 30 MG PO SCH (07:49)
[2018-10-18] MEDS: RANITIDINE HCL 150 MG TABLET (FP) PO SCH (10:03)
[2018-10-18] MEDS: PRENATAL VITAMINS W/ FOLIC ACID TABLET (FP) PO SCH (10:03)
[2018-10-18] MEDS: ASPIRIN 81 MG CHEWABLE TABLETS PO SCH (10:03)
[2018-10-18] MEDS: amLODIPine BESYLATE 10 MG TABLET (FP) PO SCH (10:04)
[2018-10-18 10:39] LABS: HEMATOCRIT 36.2 % (32.4-45.2); MCH 29.3 pg (25.7-33.7); MCHC 33.2 g/dl (32.0-36.0); MEAN CELL VOLUME 88.4 fl (80-96); MEAN PLT VOLUME 8.9 fl (7.5-11.1); PLATELET COUNT 216 K/MM3 (134-434); RDW 15.5 % (11.6-15.6); WHITE BLOOD COUNT 5.1 K/mm3 (4.0-10.0)
[2018-10-18 10:40] LABS: ALBUMIN 3.4 g/dl (3.4-5.0); ALK PHOS 150 U/L (45-117); ANION GAP 10 MMOL/L (8-16); BILIRUBIN,TOTAL 0.3 mg/dL (0.2-1); BLOOD UREA NITROGEN 15 mg/dL (7-18); CHLORIDE 104 mmol/L (98-107); CO2 29 mmol/L (21-32); CREATININE 1.1 mg/dL (0.55-1.3); GLUCOSE,RANDOM 97 mg/dL (74-106); POTASSIUM 3.9 mmol/L (3.5-5.1); SGOT/AST 23 U/L (15-37); SGPT/ALT 35 U/L (13-61); SODIUM 143 mmol/L (136-145); TOT PROT 7.3 g/dl (6.4-8.2)
--- NOTE | 2018-10-18 11:15 | PN ---
[facility] CIWA - CIWA Score Nausea/Vomitin-No Nausea/No Vomiting Muscle Tremors: 2 Anxiety: 4-Mod. Anxious/Guarded Agitation: 4-Moderately Restless Paroxysmal Sweats: 2 Orientation: 4Disoriented Place/Person Tacttile Disturbances: 0-None Auditory Disturbances: 0-None Visual Disturbances: 2-Mild Sensitivity Headache: 0-None Present CIWA-Ar Total Score: 18 S Progress Note (SOAP) Subjective: Sweating, Tremors, Fatigue, Anxious. Objective: PATIENT A & O X 2 (UNCERTAIN ABOUT CURRENT LOCATION). PATIENT OBSERVED AMBULATING ON UNIT WITH ASSISTANCE OF A WALKER. 10/18/18 11:12 Vital Signs Temperature 98.4 F 10/18/18 10:38 Pulse Rate 50 L 10/18/18 10:38 Respiratory Rate 18 10/18/18 10:38 Blood Pressure 100/62 10/18/18 10:38 O2 Sat by Pulse Oximetry (%) Laboratory Tests 10/18/18 10/18/18 10/18/18 07:00 07:00 07:00 WBC 5.1 RBC 4.10 Hgb 12.0 Hct 36.2 MCV 88.4 MCH 29.3 MCHC 33.2 RDW 15.5 Plt Count 216 MPV 8.9 Sodium 143 Potassium 3.9 Chloride 104 Carbon Dioxide 29 Anion Gap 10 BUN 15 Creatinine 1.1 Creat Clearance w eGFR 50.01 Random Glucose 97 Calcium 9.0 Total Bilirubin 0.3 AST 23 ALT 35 Alkaline Phosphatase 150 H Total Protein 7.3 Albumin 3.4 HIV 1&2 Antibody Screen Negative HIV P24 Antigen Negative LABS NOTED. RPR RESULT PENDING. 10/18/18 11:13 Assessment: 10/18/18 11:14 WITHDRAWAL SYMPTOMS. Plan: CONTINUE DETOX. PATIENT FELL TO FLOOR WHILE SITTING IN CHAIR IN HALLWAY. SEE FOLLOWING PROGRESS NOTE.
--- NOTE | 2018-10-18 11:24 | PN ---
[facility] Progress Note Note: PATIENT FELL TO FLOOR WHILE SITTING IN CHAIR IN HALLWAY ON UNIT. FALL WAS UNWITNESSED BY UNIT STAFF. PATIENT DENIES LOC AND REPORTS THAT SHE "ONLY FELL ON HER BUT." PATIENT WAS BACK SITTING IN CHAIR WHEN SHE WAS EXAMINED. NO WOUNDS , BLEEDING, SWELLING, OR DISCHARGE NOTED ON PATIENT'S HEAD. NO ERYTHEMA, SWELLING, WOUNDS, OR DISCHARGE NOTED ON PATIENT'S BUTTOCKS. PATIENT A & O X 2 ( UNCERTAIN ABOUT CURRENT LOCATION). PERRLA. PATIENT DENIES N/V AND HEAD PAIN. HOWEVER, PATIENT APPEAR VERY LETHARGIC AND HAVING DIFFICULTY WHEN SITTING ON BED. PATIENT UNWILLING TO LIE DOWN IN BED FOR TIME BEING. PATIENT ADVISED TO BE TAKEN TO [facility] ER VIA AMBULANCE, BUT REFUSED TO DO SO, STATING THAT "SHE FEELS FINE." REFUSAL OF CARE FORM SIGNED BY PATIENT. FALL PROTOCOL # 2 IMPLEMENTED. PATIENT PLACED ON 1:1 CONTINUOUS OBSERVATION FOR SAFETY FOR TIME BEING. AMMONIA LEVEL ORDERED. PATIENT'S CURRENT DETOX MEDICATION REGIMEN ( LIBRIUM) MODIFIED: LIBRIUM TO BE HELD FOR REMAINDER OF DAY TODAY UNTIL BEDTIME DOSE THIS EVENING (PENDING EVALUATION OF PATIENT AT THAT TIME). REMAINDER OF LIBRIUM DETOX PROTOCOL MODIFIED TO SLIGHTLY LOWER DOSES FOR REMAINDER OF PROTOCOL. Blanca WELCH NP
--- NOTE | 2018-10-18 15:30 | PN ---
S Progress Note Note: RESULT OF AMMONIA LEVEL NOTED: 36.40. SINCE RESULT IS ONLY SLIGHTLY ABOVE UPPER LIMIT, LACTULOSE WILL NOT BE ORDERED AT THIS TIME FOR SAFETY REASON - CONCERN OVER FACT THAT PATIENT IS LETHARGIC AND CONCERN THAT NEED TO SUDDENLY HAVE TO AMBULATE QUICKLY TO BATHROOM IS A FALL RISK. Blanca WELCH SHIP JOINER
[2018-10-18] MEDS: THIAMINE HCL 100 MG TABLET (FP) PO SCH (22:03)
[2018-10-18] MEDS: ATORVASTATIN CA 20 MG TABLET (FP) PO SCH (22:03)
[2018-10-18] MEDS ORDERED: chlordiazePOXIDE HCL 25 MG CAPSULE PO SCH (23:00)
[2018-10-19] MEDS ORDERED: METHADONE HCL 10 MG TABLET ONE (04:48)
[2018-10-19] MEDS ORDERED: METHADONE HCL 40 MG DISPERSABLE TABLET ONE (04:48)
[2018-10-19] MEDS ORDERED: chlordiazePOXIDE 5 MG CAPSULE PO SCH ×2 (05:00→23:00)
[2018-10-19] MEDS: GABAPENTIN 300 MG CAPSULE (FP) PO SCH ×3 (05:47→22:01)
[2018-10-19] MEDS: METHADONE 120 MG, METHADONE 30 MG PO SCH (05:48)
--- NOTE | 2018-10-19 10:55 | PN ---
[facility] CIWA - CIWA Score Nausea/Vomitin-No Nausea/No Vomiting Muscle Tremors: 2 Anxiety: 4-Mod. Anxious/Guarded Agitation: 4-Moderately Restless Paroxysmal Sweats: 2 Orientation: 0-Oriented Tacttile Disturbances: 2-Mild Itch/Numbness/Burn Auditory Disturbances: 0-None Visual Disturbances: 2-Mild Sensitivity Headache: 0-None Present CIWA-Ar Total Score: 16 [facility] Progress Note (SOAP) Subjective: Sweating, Fatigue, Tremors, Anxious. Objective: PATIENT A & O X 3, OBSERVED AMBULATING ON UNIT WITH ASSISTANCE OF A WALKER. PATIENT APPEAR SOMEWHAT LESS LETHARGIC TODAY THAN SHE DID YESTERDAY. [id number], LETHARGY STILL NOTED. 10/19/18 10:53 Vital Signs Temperature 96.1 F L 10/19/18 10:16 Pulse Rate 50 L 10/19/18 10:16 Respiratory Rate 16 10/19/18 10:16 Blood Pressure 103/59 L 10/19/18 10:16 O2 Sat by Pulse Oximetry (%) Laboratory Tests 10/18/18 10/18/18 10/18/18 07:00 07:00 07:00 WBC 5.1 RBC 4.10 Hgb 12.0 Hct 36.2 MCV 88.4 MCH 29.3 MCHC 33.2 RDW 15.5 Plt Count 216 MPV 8.9 Sodium 143 Potassium 3.9 Chloride 104 Carbon Dioxide 29 Anion Gap 10 BUN 15 Creatinine 1.1 Creat Clearance w eGFR 50.01 Random Glucose 97 Calcium 9.0 Total Bilirubin 0.3 AST 23 ALT 35 Alkaline Phosphatase 150 H Ammonia Total Protein 7.3 Albumin 3.4 HIV 1&2 Antibody Screen Negative HIV P24 Antigen Negative 10/18/18 13:30 WBC RBC Hgb Hct MCV MCH MCHC RDW Plt Count MPV Sodium Potassium Chloride Carbon Dioxide Anion Gap BUN Creatinine Creat Clearance w eGFR Random Glucose Calcium Total Bilirubin AST ALT Alkaline Phosphatase Ammonia 36.40 H Total Protein Albumin HIV 1&2 Antibody Screen HIV P24 Antigen LABS NOTED. 10/19/18 10:54 Assessment: 10/19/18 10:53 WITHDRAWAL SYMPTOMS. Plan: CONTINUE DETOX. INCREASE DAILY PO FLUID INTAKE. CONTINUE 1:1 CONTINUOUS OBSERVATION STATUS. PATIENT TO BE RE-EVALUATED TOMORROW AM.
--- NOTE | 2018-10-19 11:02 | PN ---
[facility] Progress Note Note: PATIENT FELL OFF TOILET AND HIT FLOOR WHILE IN BATHROOM. FALL WAS UNWITNESSED. PATIENT REPORTS THAT SHE FEEL PRIMARILY ON HER LEFT SIDE. PATIENT ALSO REPORTS THAT SHE HIT LEFT SIDE OF HEAD DURING FALL. PATIENT DENIES LOC AFTER FALL. PATIENT REPORTS THAT SHE FELT SHARP PAIN ON LEFT SIDE OF HEAD (7/10 ON PAIN SCALE) FOR A 2-3 MINUTES AFTER FALL, BUT THAT SHORTLY AFTER THAT, PAIN THEN SUBSIDED CONSIDERABLY. PATIENT POINTS TO LEFT-SIDED TEMPORAL / PARIETAL ASPECTS OF HEAD SITE THAT WAS HIT DURING FALL. NO SWELLING, ERYTHEMA, WOUNDS, BLEEDING, OR UNUSUAL DISCHARGE VISUALIZED ON PATIENT'S HEAD OR ON LEFT SIDE OF PATIENT'S BODY (ARM, LEG, RIBCAGE AREA). PATIENT A & O X 3; PERRLA. VS: BP: 127/ 71; P: 53; RR: 18; T: 98.3. [facility] FALL PROTOCOL # 2 PREVIOUSLY INITIATED YESTERDAY AFTER PREVIOUS FALL THAT PATIENT HAD ON DETOX UNIT. HEAD CT SCAN WITHOUT CONTRAST ORDERED. REPORT GIVEN TO DR. BACH AT [facility]. PATIENT TO BE TAKEN VIA AMBULANCE TO [facility] FOR FURTHER EVALUATION. Blanca WELCH NP
[2018-10-19] MEDS: RANITIDINE HCL 150 MG TABLET (FP) PO SCH (11:05)
[2018-10-19] MEDS: PRENATAL VITAMINS W/ FOLIC ACID TABLET (FP) PO SCH (11:05)
[2018-10-19] MEDS: cloNIDine HCL 0.1 MG TABLET PO SCH ×2 (11:06→22:01)
[2018-10-19] MEDS: ASPIRIN 81 MG CHEWABLE TABLETS PO SCH (11:06)
[2018-10-19] MEDS: amLODIPine BESYLATE 10 MG TABLET (FP) PO SCH (11:06)
--- NOTE | 2018-10-19 14:12 | PN ---
[facility] Progress Note Note: RECEIVED NOTIFICATION THAT, DUE TO NEW FALL THAT OCCURRED WITH PATIENT EARLIER TODAY, A NEW [facility] FALL PROTOCOL #2 NEEDS TO BE ORDERED. PREVIOUS [facility] FALL PROTOCOL # 2 THAT WAS ORDERED YESTERDAY (AFTER FALL THAT OCCURRED THEN) NO LONGER IN EFFECT SINCE A DIFFERENT FALL OCCURRED TODAY. NEW [facility] FALL PROTOCOL # 2 ORDERED (INCLUDING CT SCAN OF HEAD WITHOUT CONTRAST). Blanca WELCH TIRE FABRICATOR
--- NOTE | 2018-10-19 15:59 | PN ---
[facility] Progress Note Note: RECEIVED NOTICE FROM FELICIANO MUHAMMAD THAT PATIENT HAS BEEN CLEARED AT [facility] (PATIENT HAS NOT YET PHYSICALLY RETURNED TO [facility] AT THIS TIME). NO ACUTE CHANGES / DISORDER NOTED ON HEAD CT OR ON X-RAYS OF CERVICAL SPINE OR RIGHT KNEE THAT WERE DONE AT [facility]. DOSAGE OF M.M.T.P. TIME OF ADMINISTRATION CHANGED TO BE LATER IN MORNING (1000 DAILY, WHEN PATIENT HAS BEEN AWAKE FOR SOME TIME) FOR REMAINDER OF PATIENT'S STAY ON DETOX UNIT TO HELP REDUCE RISK OF FALL ON DETOX UNIT. Blanca WELCH, HAKEEM
[2018-10-19] MEDS: chlordiazePOXIDE HCL 10 MG CAPSULE PO SCH ×2 (17:55→22:02)
[2018-10-19] MEDS: ATORVASTATIN CA 20 MG TABLET (FP) PO SCH (22:01)
[2018-10-19] MEDS: THIAMINE HCL 100 MG TABLET (FP) PO SCH (22:02)
[2018-10-20] MEDS ORDERED: ACETAMINOPHEN 500 MG TABLET (FP) PO PRN (00:45)
[2018-10-20] MEDS ORDERED: IBUPROFEN 400 MG TABLET (FP) PO PRN (00:47)
[2018-10-20] MEDS ORDERED: chlordiazePOXIDE HCL 10 MG CAPSULE PO SCH ×2 (05:00→23:00)
[2018-10-20] MEDS: chlordiazePOXIDE HCL 10 MG CAPSULE PO SCH (06:13)
[2018-10-20] MEDS: GABAPENTIN 300 MG CAPSULE (FP) PO SCH ×3 (08:14→22:45)
[2018-10-20] MEDS ORDERED: METHADONE HCL 10 MG TABLET ONE (08:20)
[2018-10-20] MEDS ORDERED: METHADONE HCL 40 MG DISPERSABLE TABLET ONE (08:20)
[2018-10-20] MEDS ORDERED: METHADONE 120 MG, METHADONE 30 MG PO SCH (10:00)
[2018-10-20] MEDS: amLODIPine BESYLATE 10 MG TABLET (FP) PO SCH (10:02)
[2018-10-20] MEDS: PRENATAL VITAMINS W/ FOLIC ACID TABLET (FP) PO SCH (10:02)
[2018-10-20] MEDS: RANITIDINE HCL 150 MG TABLET (FP) PO SCH (10:02)
[2018-10-20] MEDS: ASPIRIN 81 MG CHEWABLE TABLETS PO SCH (10:02)
[2018-10-20] MEDS: cloNIDine HCL 0.1 MG TABLET PO SCH ×2 (10:02→22:45)
[2018-10-20] MEDS: chlordiazePOXIDE 5 MG CAPSULE PO SCH ×2 (11:15→17:39)
[2018-10-20] MEDS ORDERED: amLODIPine BESYLATE 10 MG TABLET (FP) PO SCH (12:30)
--- NOTE | 2018-10-20 15:20 | PN ---
S Progress Note (SOAP) Subjective: feeling better mild tremor "no big deal" ambulate with walker on the hallway steady gait patient reported that she did not fall on the floor that she "slip" and sitting on the toilet normal cephalic neck supple clear lungs social with peers on hallway Objective: 10/20/18 15:28 Vital Signs Temperature 98 F 10/20/18 13:24 Pulse Rate 53 L 10/20/18 13:24 Respiratory Rate 20 10/20/18 13:24 Blood Pressure 114/80 10/20/18 13:24 O2 Sat by Pulse Oximetry (%) Laboratory Last Values WBC 5.1 K/mm3 (4.0-10.0) 10/18/18 07:00 RBC 4.10 M/mm3 (3.60-5.2) 10/18/18 07:00 Hgb 12.0 GM/dL (10.7-15.3) 10/18/18 07:00 Hct 36.2 % (32.4-45.2) 10/18/18 07:00 MCV 88.4 fl (80-96) 10/18/18 07:00 MCH 29.3 pg (25.7-33.7) 10/18/18 07:00 MCHC 33.2 g/dl (32.0-36.0) 10/18/18 07:00 RDW 15.5 % (11.6-15.6) 10/18/18 07:00 Plt Count 216 K/MM3 (134-434) 10/18/18 07:00 MPV 8.9 fl (7.5-11.1) 10/18/18 07:00 Sodium 143 mmol/L (136-145) 10/18/18 07:00 Potassium 3.9 mmol/L (3.5-5.1) 10/18/18 07:00 Chloride 104 mmol/L (98-107) 10/18/18 07:00 Carbon Dioxide 29 mmol/L (21-32) 10/18/18 07:00 Anion Gap 10 MMOL/L (8-16) 10/18/18 07:00 BUN 15 mg/dL (7-18) 10/18/18 07:00 Creatinine 1.1 mg/dL (0.55-1.3) 10/18/18 07:00 Creat Clearance w eGFR 50.01 (>60) 10/18/18 07:00 Random Glucose 97 mg/dL (74-106) 10/18/18 07:00 Calcium 9.0 mg/dL (8.5-10.1) 10/18/18 07:00 Total Bilirubin 0.3 mg/dL (0.2-1) 10/18/18 07:00 AST 23 U/L (15-37) 10/18/18 07:00 ALT 35 U/L (13-61) 10/18/18 07:00 Alkaline Phosphatase 150 U/L (45-117) H 10/18/18 07:00 Ammonia 36.40 umol/L (11-32) H 10/18/18 13:30 Total Protein 7.3 g/dl (6.4-8.2) 10/18/18 07:00 Albumin 3.4 g/dl (3.4-5.0) 10/18/18 07:00 RPR Titer Nonreactive (NONREACTIVE) 10/18/18 07:00 HIV 1&2 Antibody Screen Negative 10/18/18 07:00 HIV P24 Antigen Negative 10/18/18 07:00 lab noted Assessment: 10/20/18 15:29 mild withdrawal sx Plan: continue detox patient wants to sign out AMA today that "I do not need to be here" patient wants to go home to her own home and continue going to methadone maintenance program for medical mental and addiction issues emotional support
[2018-10-20] MEDS: THIAMINE HCL 100 MG TABLET (FP) PO SCH (22:45)
[2018-10-20] MEDS: ATORVASTATIN CA 20 MG TABLET (FP) PO SCH (22:45)
[2018-10-21] MEDS ORDERED: METHADONE HCL 10 MG TABLET ONE (04:50)
[2018-10-21] MEDS ORDERED: METHADONE HCL 40 MG DISPERSABLE TABLET ONE (04:50)
[2018-10-21] MEDS: chlordiazePOXIDE 5 MG CAPSULE PO SCH ×2 (05:16)
[2018-10-21] MEDS: GABAPENTIN 300 MG CAPSULE (FP) PO SCH (05:16)
[2018-10-21] MEDS ORDERED: METHADONE 120 MG, METHADONE 30 MG PO SCH (06:00)
[2018-10-21 06:49] VITALS: BP 150/79; PULSE 59; TEMP 97.2
--- NOTE | 2018-10-21 12:18 | DS ---
[facility] Detox Discharge Summary Admission Date: 10/17/18 Discharge Date: 10/21/18 - History Present History: Alcohol Dependence Additional Comments: 63 years old female admitted on 10/17/18 for alcohol withdrawal stabilization [facility] Pertinent Past History: patient preferred to go home and go to her methadone maintenance program for mental medical and addiction issues - Physical Exam Results Vital Signs: Vital Signs Temperature 97.2 F L 10/21/18 06:48 Pulse Rate 59 L 10/21/18 06:48 Respiratory Rate 18 10/21/18 06:48 Blood Pressure 150/79 10/21/18 06:48 O2 Sat by Pulse Oximetry (%) Pertinent Admission Physical Exam Findings: alcohol withdrawal sx Laboratory Last Values WBC 5.1 K/mm3 (4.0-10.0) 10/18/18 07:00 RBC 4.10 M/mm3 (3.60-5.2) 10/18/18 07:00 Hgb 12.0 GM/dL (10.7-15.3) 10/18/18 07:00 Hct 36.2 % (32.4-45.2) 10/18/18 07:00 MCV 88.4 fl (80-96) 10/18/18 07:00 MCH 29.3 pg (25.7-33.7) 10/18/18 07:00 MCHC 33.2 g/dl (32.0-36.0) 10/18/18 07:00 RDW 15.5 % (11.6-15.6) 10/18/18 07:00 Plt Count 216 K/MM3 (134-434) 10/18/18 07:00 MPV 8.9 fl (7.5-11.1) 10/18/18 07:00 Sodium 143 mmol/L (136-145) 10/18/18 07:00 Potassium 3.9 mmol/L (3.5-5.1) 10/18/18 07:00 Chloride 104 mmol/L (98-107) 10/18/18 07:00 Carbon Dioxide 29 mmol/L (21-32) 10/18/18 07:00 Anion Gap 10 MMOL/L (8-16) 10/18/18 07:00 BUN 15 mg/dL (7-18) 10/18/18 07:00 Creatinine 1.1 mg/dL (0.55-1.3) 10/18/18 07:00 Creat Clearance w eGFR 50.01 (>60) 10/18/18 07:00 Random Glucose 97 mg/dL (74-106) 10/18/18 07:00 Calcium 9.0 mg/dL (8.5-10.1) 10/18/18 07:00 Total Bilirubin 0.3 mg/dL (0.2-1) 10/18/18 07:00 AST 23 U/L (15-37) 10/18/18 07:00 ALT 35 U/L (13-61) 10/18/18 07:00 Alkaline Phosphatase 150 U/L (45-117) H 10/18/18 07:00 Ammonia 36.40 umol/L (11-32) H 10/18/18 13:30 Total Protein 7.3 g/dl (6.4-8.2) 10/18/18 07:00 Albumin 3.4 g/dl (3.4-5.0) 10/18/18 07:00 RPR Titer Nonreactive (NONREACTIVE) 10/18/18 07:00 HIV 1&2 Antibody Screen Negative 10/18/18 07:00 HIV P24 Antigen Negative 10/18/18 07:00 lab noted observed patient ambulate on hallway with walker social with peers in day room - Treatment Hospital Course: Detox Protocol Followed, Detoxed Safely, Responded well, Discharged Condition Good, Rehab Referral Accepted Patient has Accepted a Rehab Referral to: [facility] - Medication Discharge Medications: Ambulatory Orders Bupropion HCl [Wellbutrin Sr] 150 mg PO HS 09/10/18 Gabapentin 600 mg PO BID 09/10/18 Simvastatin 40 mg PO DAILY 09/10/18 Atorvastatin Calcium [Lipitor] 80 mg PO DAILY 09/12/18 Nitrofurantoin Macrocrystal [Nitrofurantoin] 100 mg PO BID 09/13/18 Aspirin 81 mg PO DAILY #14 tab.chew 09/19/18 Bupropion HCl [Wellbutrin Xl -] 300 mg PO DAILY #30 tab.sr.24h 09/19/18 Quetiapine Fumarate [Seroquel -] 200 mg PO BID #60 tablet 09/19/18 cloNIDine HCL [Catapres -] 0.1 mg PO BID #30 tablet 09/19/18 Albuterol Sulfate Inhaler - [Ventolin HFA Inhaler -] 2 puff IH Q4H PRN #1 inhaler 10/20/18 Amlodipine Besylate [Norvasc -] 10 mg PO DAILY #14 tablet 10/20/18 Atorvastatin Ca [Lipitor] 20 mg PO HS #14 tablet 10/20/18 - Diagnosis (1) Nicotine dependence Current Visit: Yes Status: Acute Qualifiers: Nicotine product type: cigarettes Substance use status: in withdrawal Qualified Code(s): F17.213 - Nicotine dependence, cigarettes, with withdrawal (2) Substance induced mood disorder Current Visit: Yes Status: Suspected (3) HTN (hypertension) Current Visit: Yes Status: Chronic Qualifiers: Hypertension type: essential hypertension Qualified Code(s): I10 - Essential (primary) hypertension (4) HLD (hyperlipidemia) Current Visit: Yes Status: Chronic Qualifiers: Hyperlipidemia type: unspecified Qualified Code(s): E78.5 - Hyperlipidemia , unspecified (5) Asthma Current Visit: Yes Status: Chronic Qualifiers: Asthma severity: mild Asthma persistence: intermittent Asthma complication type: with status asthmaticus Qualified Code(s): J45.22 - Mild intermittent asthma with status asthmaticus (6) Neuropathy Current Visit: Yes Status: Chronic (7) GERD (gastroesophageal reflux disease) Current Visit: Yes Status: Chronic Qualifiers: Esophagitis presence: without esophagitis Qualified Code(s): K21.9 - Gastro -esophageal reflux disease without esophagitis (8) Uses roller walker Current Visit: Yes Status: Chronic - AMA Did Patient Leave Against Medical Advice: No
== END 2018-10-21 10:34 | disposition home or self-care (01) | DRG 773 ==
LOC: YASAS 16:02 → Y3N 19:53
PROVIDERS: ADMIT Neuromusculoskeletal Medicine & OMM; ATTEND Neuromusculoskeletal Medicine & OMM
PROC: HZ2ZZZZ Detoxification Services for Substance Abuse Treatment (ICD-10-PCS; principal; 2018-10-17)
DX: F10.230 Alcohol dependence with withdrawal, uncomplicated (principal); F11.20 Opioid dependence, uncomplicated; F14.20 Cocaine dependence, uncomplicated; F17.213 Nicotine dependence, cigarettes, with withdrawal; F19.24 Other psychoactive substance dependence with psychoactive substance-induced mood disorder; I10 Essential (primary) hypertension; E78.5 Hyperlipidemia, unspecified; J45.22 Mild intermittent asthma with status asthmaticus; G62.9 Polyneuropathy, unspecified; K21.9 Gastro-esophageal reflux disease without esophagitis; M16.0 Bilateral primary osteoarthritis of hip; R26.2 Difficulty in walking, not elsewhere classified; Z99.89 Dependence on other enabling machines and devices; H02.843 Edema of right eye, unspecified eyelid; S09.90XA Unspecified injury of head, initial encounter; W07.XXXA Fall from chair, initial encounter; W18.11XA Fall from or off toilet without subsequent striking against object, initial encounter; W22.03XA Walked into furniture, initial encounter; Y93.89 Activity, other specified; Y92.231 Patient bathroom in hospital as the place of occurrence of the external cause; Y92.230 Patient room in hospital as the place of occurrence of the external cause
CPT/HCPCS: 36415; 80053; 82140; 85027; 86593; 87389; J0735

== ENCOUNTER 2018-10-19 11:41 | Emergency (ER) | payer OTHER ==
[2018-10-19 11:50] VITALS: BMI 26.6
--- NOTE | 2018-10-19 11:53 | PDOC ---
History of Present Illness - General Chief Complaint: Injury Stated Complaint: FALL Time Seen by Provider: 10/19/18 11:53 History Source: [place], [place] Exam Limitations: Clinical Condition, Intoxication - History of Present Illness Initial Comments: 10/19/18 12:17 This is a 63 yo F w PMH of HTN, HLD, untreated hep C, unspecified GI d/o and schizophreania, who presents from [facility] detox, where shes been for 2 d s/p unwitnessed fall a day ago. Patient refused hospital transfer yesterday so was brought in today. While at detox (for EtOH) she has had 1:1 obs and fell in the bathroom, possibly hitting her head. Per EMS, they were not able to produce any pain complaints form her. On presentation patient is very lethargic and seldom responds to verbal command, which is her baseline over the past 2 days per [facility] staff. She has been on librium 10 and methadone 150 today Exam is limited due to patients lack of response, she complains of R knee pain (had prior R knee surgery in ) but denies other pain. 10/19/18 12:58 10/19/18 13:37 Past History - Past Medical History Allergies/Adverse Reactions: Allergies Allergy/AdvReac Type Severity Reaction Status Date / Time benztropine [From Cogentin] Allergy Verified 10/19/18 11:50 naloxone [From Narcan] AdvReac Verified 10/19/18 11:50 Home Medications: Ambulatory Orders Bupropion HCl [Wellbutrin Sr] 150 mg PO HS 09/10/18 Gabapentin 600 mg PO BID 09/10/18 Simvastatin 40 mg PO DAILY 09/10/18 Atorvastatin Calcium [Lipitor] 80 mg PO DAILY 09/12/18 Nitrofurantoin Macrocrystal [Nitrofurantoin] 100 mg PO BID 09/13/18 Amlodipine Besylate [Norvasc -] 10 mg PO DAILY #14 tablet 09/19/18 Aspirin 81 mg PO DAILY #14 tab.chew 09/19/18 Atorvastatin Ca [Lipitor] 20 mg PO HS #14 tablet 09/19/18 Bupropion HCl [Wellbutrin Xl -] 300 mg PO DAILY #30 tab.sr.24h 09/19/18 Quetiapine Fumarate [Seroquel -] 200 mg PO BID #60 tablet 09/19/18 cloNIDine HCL [Catapres -] 0.1 mg PO BID #30 tablet 09/19/18 Anemia: Yes Asthma: No Cancer: No Cardiac Disorders: No CVA: No COPD: No CHF: No Dementia: No Diabetes: No GI Disorders: Yes Disorders: No HTN: Yes Hypercholesterolemia: Yes Kidney Stones: No Liver Disease: No Seizures: No Thyroid Disease: No - Surgical History Abdominal Surgery: No Appendectomy: No Cardiac Surgery: No Cholecystectomy: No Lung Surgery: No Neurologic Surgery: No Orthopedic Surgery: Yes (RIGHT KNEE 1994) - Reproductive History PID: No - Suicide/Smoking/Psychosocial Hx Smoking History: Unknown if ever smoked Have you smoked in the past 12 months: No Number of Cigarettes Smoked Daily: 5 Information on smoking cessation initiated: No 'Breaking Loose' booklet given: 10/17/18 Hx Alcohol Use: Yes Drug/Substance Use Hx: No Substance Use Type: Alcohol, Cocaine Hx Substance Use Treatment: Yes (DETOX: 2010 REHAB:08/2018) Review of Systems - Review of Systems Able to Perform ROS?: No (lethargic ) *Physical Exam - Vital Signs Last Vital Signs Temp Pulse Resp BP Pulse Ox 97.3 F L 55 L 18 128/75 98 10/19/18 11:45 10/19/18 11:45 10/19/18 11:45 10/19/18 11:45 10/19/18 11:45 - Physical Exam General Appearance: Yes: Disheveled, Intoxicated HEENT: positive: VICENTE. negative: Normal Voice (slurred ), Scleral Icterus (R), Scleral Icterus (L) Neck: positive: Trachea midline, Supple. negative: Tender, Carotid bruit, Tender lateral, Tender midline Respiratory/Chest: positive: Lungs Clear, Normal Breath Sounds Cardiovascular: positive: Regular Rhythm, Regular Rate, S1, S2, Murmur (grade 3 systlic ). negative: JVD Gastrointestinal/Abdominal: positive: Normal Bowel Sounds, Soft. negative: Tender, Organomegaly, Mass Musculoskeletal: positive: Other (no cranial, cervical, upper thoracic or him tenderness. no gross bony abnormality ). negative: CVA Tenderness Extremity: negative: Tender, Cyanosis, Pedal Edema, Swelling, Calf Tenderness Integumentary: positive: Dry, Warm Neurologic: positive: Respond to painful stimul (imited exam, nt cooperating) Moderate Sedation - Procedure Monitoring Vital Signs: Procedure Monitoring Vital Signs Temperature 97.3 F L 10/19/18 11:45 Pulse Rate 55 L 10/19/18 11:45 Respiratory Rate 18 10/19/18 11:45 Blood Pressure 128/75 10/19/18 11:45 O2 Sat by Pulse Oximetry (%) 98 10/19/18 11:45 ED Treatment Course - LABORATORY CBC & Chemistry Diagram: 10/19/18 14:43 - ADDITIONAL ORDERS Additional order review: 10/19/18 12:[address], cervical spine ct abd R knee XFR unremarkable for acute pathology 10/19/18 13:38 EKG ns 50 bpm, manually calculated qtc 440-430, no evidence of acs patient refusing IV 10/19/18 14:00 tox screen noted, findings as expected 10/19/18 15:17 CMP unremarkable for hyperammonimia or electrolyte abnormalities patient safe to be [place] [facility] [place] *DC/Admit/Observation/Transfer Diagnosis at time of Disposition: Opioid dependence on agonist therapy, Substance induced mood disorder Fall Qualifiers: Encounter type: initial encounter Qualified Code(s): W19.XXXA - Unspecified fall, initial encounter HLD (hyperlipidemia) Qualifiers: Hyperlipidemia type: unspecified Qualified Code(s): E78.5 - Hyperlipidemia, unspecified HTN (hypertension) Qualifiers: Hypertension type: essential hypertension Qualified Code(s): I10 - Essential ( primary) hypertension Alcohol dependence Qualifiers: Substance use status: uncomplicated Qualified Code(s): F10.20 - Alcohol dependence, uncomplicated - Discharge Dispostion Disposition: TRANSFER ACUTE CARE/OTHER HOSP Condition at time of disposition: Stable Decision to Admit order: No - Referrals - Patient Instructions - Post Discharge Activity
[2018-10-19] MEDS ORDERED: FOLIC ACID INJECTION - 1 MG, THIAMINE HCL 100 MG, MULTIVIT INJECTION ADULT 10 ML in SOD... IVPB ONE (12:06)
--- NOTE | 2018-10-19 12:10 | PDOC ---
Attending Attestation - HPI HPI: 10/19/18 14:27 The patient is a 63 year old female, with a significant past medical history of HLD, Anemia, HTN, Hepatitis C (untreated), Schizophrenia , who presents to the emergency department with s/p fall. As per [facility] staff, the patient fell on the toilet, was unwitnessed. but was on 1-1 at the time and her aid was immediately outside of the bathroom door, and heard her fall and checked on the patient immediately - and there was no signs of LOC, but the patient may have hit her head. The pt apparently may have had a fall yetserday, but the patient refused to come to the ED yesterday. As per nursing staff, the patient has been very lethargic recently, suspected secondary to her medication (methadone, benzos). She denies recent fevers or chills She denies recent nausea, vomit, diarrhea or constipation. She denies recent dysuria, frequency, urgency or hematuria. She denies recent chest pain or shortness of breath. Allergies: benztropine, naloxone <Dizenzo,Patrizia - Last Filed: 10/19/18 14:29> - Resident Resident Name: Stacey Zayas - ED Attending Attestation I have performed the following: I have examined & evaluated the patient, The case was reviewed & discussed with the resident, I agree w/resident's findings & plan, Exceptions are as noted - Physicial Exam PE: 10/19/18 13:43 GENERAL: The patient is somnolent, but arousable to verbal stimulus, Nontoxic - in no acute distress. HEAD: Normocephalic, atraumatic. EYES: pupils pinpoint, extraocular movements intact, sclera anicteric, conjunctiva clear. ENT: Normal voice, Moist mucous membranes. NECK: Normal range of motion, supple LUNGS: Breath sounds equal, clear to auscultation bilaterally. No wheezes, no rhonchi, no rales. HEART: Regular rate and rhythm, normal S1 and S2 without murmur, rub or gallop. ABDOMEN: Soft, nontender, normoactive bowel sounds. No guarding, no rebound. . No CVA tenderness EXTREMITIES: Normal range of motion, no edema. NEUROLOGICAL: No facial assymetry, Normal speech, moving all 4 extremitie spontaneously and symmetrically PSYCH: Normal mood, normal affect. SKIN: Warm, Dry, normal turgor, - Medical Decision Making 10/19/18 12:10 63y M hx of htn, untreated HCV, schizophrenia, polysubstance abuse presents from [facility] for evaluation sp fall. The patient sp 2 days of detox from etoh , had an unwitnessed fall today in the bathroom - but was on 1:1 at the time and there wsa someone immediately outside of the restroom, pt did not have any notable LOC. Pt denies any current headache, n/v, vision changes., neck pain, back pain, chest pain shortness of breath, abd pain, numbness/tingling/ weakness. pt on 150mg of methadone and librium. head ct obtained per protocol - negative suspect pts lethargy secondary to her methadone/benzo use ekg obtained and is wnl will ck basic labs will reasssess A portion of this note was documented by scribe services under my direction. I have reviewed the details of the note, within reason, and agree with the documentation with the following case summary and management plan written by me 10/19/18 17:[address] negative labs reviewed pt arousable, willdc back to [facility] return precautions were discussed <Vladimir Dumont - Last Filed: 10/20/18 10:18> Heart Score/ECG Review - ECG Impressions Comment:: 10/19/18 13:59 Twelve-lead EKG was performed and reviewed by me. There is normal sinus rhythm with a rate of 50 The axis is normal. There is normal R wave progression There are no ST or T wave abnormalities. sinus bradycarida <Vladimir Dumont - Last Filed: 10/20/18 10:18> Attestations - Attestations 10/19/18 14:30 Documentation prepared by Patrizia Brambila, acting as manager of medical for Vladimir Dumont MD. <Patrizia Brambila - Last Filed: 10/19/18 14:29>
[2018-10-19 13:43] LABS: OPIATES, URI NEGATIVE ng/ml (CUTOFF=300); PHENCYCLIDINE,URINE NEGATIVE ng/ml (CUTOFF=25); URINE AMPHETAMINES NEGATIVE ng/ml (CUTOFF=500); URINE BARBITURATES NEGATIVE ng/ml (CUTOFF=200)
[2018-10-19 13:56] LABS: COCAINE, UR POSITIVE ng/ml (CUTOFF=300); METHADONE, UR POSITIVE ng/ml (CUTOFF=300); URINE BENZODIAZEPINES POSITIVE ng/ml (CUTOFF=200)
[2018-10-19 15:12] LABS: ALBUMIN 3.1 g/dl (3.4-5.0); ALK PHOS 148 U/L (45-117); ANION GAP 6 MMOL/L (8-16); BILIRUBIN,TOTAL 0.2 mg/dL (0.2-1); BLOOD UREA NITROGEN 18 mg/dL (7-18); CALCIUM 8.6 mg/dL (8.5-10.1); CHLORIDE 105 mmol/L (98-107); CO2 31 mmol/L (21-32); CREATININE 0.9 mg/dL (0.55-1.3); GLUCOSE,RANDOM 112 mg/dL (74-106); PHOSPHOROUS 3.5 mg/dL (2.5-4.9); POTASSIUM 4.3 mmol/L (3.5-5.1); SGOT/AST 22 U/L (15-37); SGPT/ALT 31 U/L (13-61); SODIUM 142 mmol/L (136-145); TOT PROT 6.6 g/dl (6.4-8.2)
[2018-10-19 15:37] VITALS: BP 124/72; PULSE 62; TEMP 98.1
--- NOTE | 2018-10-20 11:22 | EKG ---
Test Reason : Blood Pressure : / mmHG Vent. Rate : 050 BPM Atrial Rate : 050 BPM P-R Int : 160 ms QRS Dur : 090 ms QT Int : 512 ms P-R-T Axes : 051 027 016 degrees QTc Int : 466 ms SINUS BRADYCARDIA WITH MARKED SINUS ARRHYTHMIA NO PREVIOUS ECGS AVAILABLE Confirmed by CECE SMITH MD ([id number]) on 10/20/2018 11:22:28 AM Referred By: Confirmed By:CECE SMITH MD
== END 2018-10-19 16:44 | disposition short-term general hospital (02) ==
LOC: JER 11:41
DX: F19.24 Other psychoactive substance dependence with psychoactive substance-induced mood disorder (principal); F10.20 Alcohol dependence, uncomplicated; F11.20 Opioid dependence, uncomplicated; F20.9 Schizophrenia, unspecified; I10 Essential (primary) hypertension; E78.5 Hyperlipidemia, unspecified; B18.2 Chronic viral hepatitis C; W20.8XXA Other cause of strike by thrown, projected or falling object, initial encounter; Y93.89 Activity, other specified; Y92.231 Patient bathroom in hospital as the place of occurrence of the external cause; Y99.8 Other external cause status
CPT/HCPCS: 70450-TC; 72125-TC; 73562-TC-RT-FY; 80053; 80307; 82140; 83735; 84100; 93005; 93010; 99282-25; J7030

== ENCOUNTER 2019-01-03 14:31 | Inpatient (IN) | payer OTHER ==
[2019-01-03 19:54] VITALS: BMI 27.7
--- NOTE | 2019-01-03 21:02 | HP ---
CIWA Score - Admission Criteria [facility] Guidelines: Admission for Medically Managed Detox: Requires at least one of the followin. CIWA greater than 12 2. Seizures within the past 24 hours 3. Delirium tremens within the past 24 hours 4. Hallucinations within the past 24 hours 5. Acute intervention needed for co occurring medical disorder 6. Acute intervention needed for co occurring psychiatric disorder 7. Severe withdrawal that cannot be handled at a lower level of care (continued vomiting, continued diarrhea, abnormal vital signs) requiring intravenous medication and/or fluids 8. Admission ROS S - HPI Chief Complaint: Seeking admission to Rehab. Allergies/Adverse Reactions: Allergies Allergy/AdvReac Type Severity Reaction Status Date / Time benztropine [From Cogentin] Allergy Verified 01/03/19 19:27 naloxone [From Narcan] AdvReac Verified 01/03/19 19:27 History of Present Illness: 63 years old female is seeking admission to rehab. Patient is dependent on cocaine, Xanax and alcohol. Patient has been in previous multiple Rehab. She has medical history of Hep C, anemia, GERD, hyperlipidemia and hypertension. She denies suicidal ideation at this time. Patient is on Methadone 160mg at [facility]. Last day medicated was this morning. Dose is yet to be verified. Exam Limitations: No Limitations - Ebola screening Have you traveled outside of the country in the last 21 days: No (N) Have you had contact with anyone from an Ebola affected area: No Do you have a fever: No - Review of Systems Constitutional: No Symptoms Reported EENT: reports: No Symptoms Reported Respiratory: reports: No Symptoms reported Cardiac: reports: No Symptoms Reported GI: reports: No Symptoms Reported : reports: No Symptoms Reported Musculoskeletal: reports: No Symptoms Reported Integumentary: reports: No Symptoms Reported Neuro: reports: No Symptoms reported Endocrine: reports: No Symptoms Reported Hematology: reports: No Symptoms Reported Psychiatric: reports: No Sypmtoms Reported, Mood/Affect Appropiate, Orientated x3 Other Systems: Reviewed and Negative Patient History - Patient Medical History Hx Anemia: Yes (Ferous Sulfate) Hx Asthma: No Hx Chronic Obstructive Pulmonary Disease (COPD): No Hx Cancer: No Hx Cardiac Disorders: No Hx Congestive Heart Failure: No Hx Hypertension: Yes (Clonidine, Norvasc) Hx Hypercholesterolemia: Yes (Simvastatin) Hx Pacemaker: No HX Cerebrovascular Accident: No Hx Seizures: No Hx Dementia: No Hx Diabetes: No Hx Gastrointestinal Disorders: Yes (Pepcid) Hx Liver Disease: No Hx Genitourinary Disorders: No Hx Sexually Transmitted Disorders: No Hx Renal Disease (ESRD): No Hx Thyroid Disease: No Hx Human Immunodeficiency Virus (HIV): No Hx Hepatitis C: Yes (UNTREATED) Hx Depression: No Hx Suicide Attempt: No Hx Bipolar Disorder: No Hx Schizophrenia: Yes (Seroquel) - Patient Surgical History Past Surgical History: Yes Hx Neurologic Surgery: No Hx Cataract Extraction: No Hx Cardiac Surgery: No Hx Lung Surgery: No Hx Breast Surgery: No Hx Breast Biopsy: No Hx Abdominal Surgery: No Hx Appendectomy: No Hx Cholecystectomy: No Hx Genitourinary Surgery: No Hx Section: No Hx Orthopedic Surgery: Yes (RIGHT KNEE 1993) Anesthesia Reaction: No - PPD History Previous Implant?: Yes Documented Results: Negative w/proof Implanted On Prior [facility] Admission?: Yes Date: 09/13/18 Results: 0 PPD to be Administered?: No - Reproductive History Patient is a Female of Child Bearing Age (11 -55 yrs old): Yes LMP comment: MENOPAUSAL Patient : No - Smoking Cessation Smoking history: Current every day smoker Have you smoked in the past 12 months: Yes Aproximately how many cigarettes per day: 5 Hx Chewing Tobacco Use: No Initiated information on smoking cessation: Yes 'Breaking Loose' booklet given: 01/03/19 - Substance & Tx. History Hx Alcohol Use: Yes Hx Substance Use: Yes Substance Use Type: Alcohol, Cocaine Hx Substance Use Treatment: Yes ([facility]) - Substances abused Cocaine Substance route: Smoking Frequency: Daily Amount used: 15 bags Age of first use: 14 Date of last use: 11/28/18 Alprazolam (Xanax) Substance route: Oral Frequency: No use in 30 days Amount used: half of 1 pill Age of first use: 61 Date of last use: 12/22/18 Alcohol Substance route: Oral Frequency: Daily Amount used: 3 of 40 ounces Age of first use: 12 Date of last use: 10/23/18 Family Disease History - Family Disease History Family Disease History: Heart Disease: Father (d.54), Other: Mother (d. 90), Brother (htn , d. 40 renal disease), Sister (htn), Daughter (DVT ) Admission Physical Exam BHS - Vital Signs Vital Signs: Vital Signs - 24 hr 01/03/19 19:40 Temperature 96.9 F L Pulse Rate 60 Respiratory 16 Rate Blood Pressure 131/90 - Physical General Appearance: Yes: Within Normal Limits HEENTM: Yes: EOMI, Normal ENT Inspection, Normal Voice Respiratory: Yes: Normal Breath Sounds, No Respiratory Distress Neck: Yes: Supple Breast: Yes: Breast Exam Deferred Cardiology: Yes: Regular Rhythm, Regular Rate Abdominal: Yes: Normal Bowel Sounds Genitourinary: Yes: Within Normal Limits Back: Yes: Normal Inspection Musculoskeletal: Yes: Within Normal Limits Extremities: Yes: Normal Inspection Neurological: Yes: Alert, Normal Mood/Affect Integumentary: Yes: Warm Lymphatic: Yes: Within Normal Limits - Diagnostic (1) Nicotine dependence Current Visit: Yes Status: Chronic Qualifiers: Nicotine product type: cigarettes Substance use status: in withdrawal Qualified Code(s): F17.213 - Nicotine dependence, cigarettes, with withdrawal (2) Alcohol dependence Current Visit: Yes Status: Chronic Qualifiers: Substance use status: uncomplicated Qualified Code(s): F10.20 - Alcohol dependence, uncomplicated (3) Asthma Current Visit: Yes Status: Chronic Qualifiers: Asthma severity: mild Asthma persistence: intermittent Asthma complication type: unspecified Qualified Code(s): J45.20 - Mild intermittent asthma, uncomplicated (4) GERD (gastroesophageal reflux disease) Current Visit: Yes Status: Chronic Qualifiers: Esophagitis presence: without esophagitis Qualified Code(s): K21.9 - Gastro -esophageal reflux disease without esophagitis (5) HLD (hyperlipidemia) Current Visit: Yes Status: Chronic Qualifiers: Hyperlipidemia type: unspecified Qualified Code(s): E78.5 - Hyperlipidemia , unspecified (6) HTN (hypertension) Current Visit: Yes Status: Chronic Qualifiers: Hypertension type: essential hypertension Qualified Code(s): I10 - Essential (primary) hypertension (7) Neuropathy Current Visit: Yes Status: Chronic (8) Opioid dependence on agonist therapy Current Visit: Yes Status: Chronic (9) Osteoarthritis of both hips Current Visit: Yes Status: Chronic (10) Uses roller walker Current Visit: Yes Status: Chronic Cleared for Admission [facility] - Detox or Rehab [facility] Level of Care: Observation Bed Claeared for Rehab Admission: Yes Inpatient Rehab Admission - Rehab Decision to Admit Inpatient rehab admission?: Yes - Initial Determination Are CD services needed?: No Free of communicable disease: Yes Not in need of hospitalization: Yes - Rehab Admission Criteria Previous failed treatment: Yes Poor recovery environment: Yes Comorbidities: Yes Lacks judgement: No Patient is meeting Inpatient Rehab admission criteria:: Yes
[2019-01-03] MEDS ORDERED: guaiFENesin 200 MG/10 ML 10 ML UNIT-DOSE CUPS PO PRN (21:23)
[2019-01-03] MEDS ORDERED: ACETAMINOPHEN 325 MG TABLET (FP) PO PRN (21:23)
[2019-01-03] MEDS ORDERED: MAG HYDROX/AL HYDROX/SIMETH 30 ML UNIT-DOSE CUP PO PRN (21:23)
[2019-01-03] MEDS ORDERED: LOPERAMIDE HCL 2 MG CAPSULE PO PRN (21:23)
[2019-01-03] MEDS ORDERED: IBUPROFEN 400 MG TABLET (FP) PO PRN (21:23)
[2019-01-03] MEDS ORDERED: P-EPHED 60MG/TRIPROLIDI 2.5MG TABLET PO PRN (21:23)
[2019-01-03] MEDS ORDERED: MENTHOL/PHENOL 1 EACH UD MM PRN (21:23)
[2019-01-03] MEDS ORDERED: MAGNESIUM HYDROX 2400MG/30ML ORAL SUSPENSION 30 ML CUP PO PRN (21:23)
[2019-01-03] MEDS ORDERED: MAGNESIUM CITRATE 300 ML BOTTLE PO PRN (21:23)
[2019-01-03] MEDS ORDERED: ALBUTEROL SO4 8 GM HFA INHALER IH PRN (21:24)
[2019-01-03] MEDS ORDERED: MELATONIN 5 MG TABLETS PO PRN (22:00)
[2019-01-03] MEDS: GABAPENTIN 300 MG CAPSULE (FP) PO SCH (23:23)
[2019-01-03] MEDS: cloNIDine HCL 0.1 MG TABLET PO SCH (23:24)
[2019-01-03] MEDS: THIAMINE HCL 100 MG TABLET (FP) PO SCH (23:24)
[2019-01-03 23:51] LABS: EPI CELLS 27.2 /HPF (0-5/HPF); PH,URINE 5.5 (5.0-8.0); URINE APPEARANCE CLOUDY; URINE BACTERIA 330.3 /hpf (NEGATIVE); URINE BILIRUBIN NEGATIVE (NEGATIVE); URINE CASTS 23 /hpf (0-8); URINE COLOR YELLOW; URINE GLUCOSE (UA) NEGATIVE (NEGATIVE); URINE KETONE NEGATIVE (NEGATIVE); URINE LEUK ESTERASE 2+ (NEGATIVE); URINE NITRITE NEGATIVE (NEGATIVE); URINE PROTEIN NEGATIVE (NEGATIVE); URINE RBC 4 /hpf (0-4); URINE WBC 28 /hpf (0-5)
[2019-01-04] MEDS: GABAPENTIN 300 MG CAPSULE (FP) PO SCH ×3 (06:45→21:19)
[2019-01-04] MEDS: METHADONE HCL 40 MG DISPERSABLE TABLET PO SCH (07:16)
[2019-01-04] MEDS: ASPIRIN 81 MG CHEWABLE TABLETS PO SCH (09:45)
[2019-01-04] MEDS: PRENATAL VITAMINS W/ FOLIC ACID TABLET (FP) PO SCH (09:45)
[2019-01-04] MEDS: amLODIPine BESYLATE 10 MG TABLET (FP) PO SCH (09:45)
[2019-01-04] MEDS: cloNIDine HCL 0.1 MG TABLET PO SCH ×2 (09:46→21:19)
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
[2019-01-04] MEDS: THIAMINE HCL 100 MG TABLET (FP) PO SCH (21:19)
[2019-01-04] MEDS: QUEtiapine FUMARATE 100 MG TABLET (FP) PO SCH (21:20)
[2019-01-04] MEDS: ATORVASTATIN CA 20 MG TABLET (FP) PO SCH (21:21)
[2019-01-05] MEDS: METHADONE HCL 40 MG DISPERSABLE TABLET PO SCH (06:33)
[2019-01-05] MEDS: GABAPENTIN 300 MG CAPSULE (FP) PO SCH ×3 (06:34→21:32)
[2019-01-05] MEDS: ASPIRIN 81 MG CHEWABLE TABLETS PO SCH (09:46)
[2019-01-05] MEDS: amLODIPine BESYLATE 10 MG TABLET (FP) PO SCH (09:46)
[2019-01-05] MEDS: PRENATAL VITAMINS W/ FOLIC ACID TABLET (FP) PO SCH (09:46)
[2019-01-05] MEDS: cloNIDine HCL 0.1 MG TABLET PO SCH ×2 (09:46→21:32)
[2019-01-05] MEDS: ATORVASTATIN CA 20 MG TABLET (FP) PO SCH (21:32)
[2019-01-05] MEDS: THIAMINE HCL 100 MG TABLET (FP) PO SCH (21:32)
[2019-01-05] MEDS: QUEtiapine FUMARATE 100 MG TABLET (FP) PO SCH (21:33)
[2019-01-06] MEDS: METHADONE HCL 40 MG DISPERSABLE TABLET PO SCH (06:22)
[2019-01-06] MEDS: GABAPENTIN 300 MG CAPSULE (FP) PO SCH ×3 (06:23→21:20)
[2019-01-06] MEDS: cloNIDine HCL 0.1 MG TABLET PO SCH ×3 (06:24→21:21)
[2019-01-06] MEDS: PRENATAL VITAMINS W/ FOLIC ACID TABLET (FP) PO SCH (09:39)
[2019-01-06] MEDS: ASPIRIN 81 MG CHEWABLE TABLETS PO SCH (09:39)
[2019-01-06] MEDS: amLODIPine BESYLATE 10 MG TABLET (FP) PO SCH (09:39)
[2019-01-06] MEDS ORDERED: amLODIPine BESYLATE 10 MG TABLET (FP) PO ONE ×3 (12:03→14:00)
[2019-01-06] MEDS ORDERED: cloNIDine HCL 0.1 MG TABLET PO SCH ×2 (12:12→22:00)
--- NOTE | 2019-01-06 12:21 | PN ---
[facility] Progress Note Note: CALLED FOR PT WITH ELEVATED BP. REVIEW OF PT'S HOME MEDS FROM OUTSIDE PHARMACY REVEALS PT IS ON LISINOPRIL 5 MG LEANNE, NORVASC 10 MG PO DAILY WELL CLONIDINE WHICH HAS VARIED FROM 0.1, 0.2 TO 0.3 MG BID BY SEVERAL PRESCRIBER/ PHARMACIES. PT REPORTS SHE HAS ALL HER MEDICATIONS AT HOME. REPORTS SHE HAS A PCP, DR. YANG AT [facility]. Vital Signs (72 hours) 01/03/19 01/04/19 01/04/19 19:40 03:30 07:24 Temperature 96.9 F L 97.3 F L Pulse Rate 60 68 Respiratory 16 18 18 Rate Blood Pressure 131/90 139/91 01/04/19 01/04/19 01/05/19 09:34 23:21 00:30 Temperature 97.3 F L Pulse Rate 72 73 Respiratory 18 18 Rate Blood Pressure 135/84 157/80 01/05/19 01/05/19 01/05/19 03:30 07:07 09:03 Temperature 99.0 F Pulse Rate 72 60 Respiratory 18 18 Rate Blood Pressure 149/87 156/90 01/05/19 01/06/19 01/06/19 23:14 06:42 09:12 Temperature 97.6 F 97.2 F L Pulse Rate 75 63 67 Respiratory 18 16 Rate Blood Pressure 157/91 172/102 H 108/66 01/06/19 01/06/19 11:34 11:55 Temperature Pulse Rate 57 L 58 L Respiratory Rate Blood Pressure 144/79 151/91 PLAN:WILL RESTART LISINOPRIL 5 MG PO DAILY CONTINUE NORVASC 10 MG PO DAILY CLONIDINE 0.2 MG PO BID @0600 WHILE INPATIENT(PT REQUESTED) PT TO FOLLOW UP WITH PMD AFTER REHAB.
[2019-01-06] MEDS ORDERED: cloNIDine HCL 0.1 MG TABLET PO ONE (12:43)
[2019-01-06] MEDS: ATORVASTATIN CA 20 MG TABLET (FP) PO SCH (21:20)
[2019-01-06] MEDS: QUEtiapine FUMARATE 100 MG TABLET (FP) PO SCH (21:20)
[2019-01-06] MEDS: THIAMINE HCL 100 MG TABLET (FP) PO SCH (21:20)
[2019-01-07] MEDS: METHADONE HCL 40 MG DISPERSABLE TABLET PO SCH (06:03)
[2019-01-07] MEDS: cloNIDine HCL 0.1 MG TABLET PO SCH ×2 (06:04→21:18)
[2019-01-07] MEDS: GABAPENTIN 300 MG CAPSULE (FP) PO SCH ×3 (06:04→21:18)
[2019-01-07] MEDS ORDERED: PT OWN MED DRAWER 7, Y5N ONE (08:31)
[2019-01-07] MEDS: amLODIPine BESYLATE 10 MG TABLET (FP) PO SCH (09:59)
[2019-01-07] MEDS: ASPIRIN 81 MG CHEWABLE TABLETS PO SCH (09:59)
[2019-01-07] MEDS ORDERED: LISINOPRIL 5 MG TABLET (FP) PO SCH (10:00)
[2019-01-07] MEDS: LISINOPRIL 5 MG TABLET (FP) PO SCH (10:00)
[2019-01-07] MEDS: PRENATAL VITAMINS W/ FOLIC ACID TABLET (FP) PO SCH (10:00)
--- NOTE | 2019-01-07 10:46 | PN ---
Psychiatric Progress Note Vital Signs: Vital Signs Period Temp Pulse Resp BP Sys/Roque Pulse Ox Last 24 Hr 97.3 F 56-75 18-18 133-170/79-92 Date of Session: 01/07/19 Chief Complaint:: " My seroquel is too low." HPI: This is day five of rehab for Ms. Lizarraga. Patient reports worsening irritability and difficulty sleeping. ROS: Remarkable for neuropathy, bronchial asthma, hypertension, dyslipidemia and osteoarthritis of both hips, peptic ulcer disease and a history of bilateral knee replacement. Current Medications: Active Medications Generic Name Dose Route Start Last Admin Trade Name Freq PRN Reason Stop Dose Admin Acetaminophen 650 mg 01/03/19 21:23 Tylenol - PO Q4H PRN FEVER Al Hydroxide/Mg Hydroxide 30 ml 01/03/19 21:23 Mylanta Oral Suspension - PO Q6H PRN DYSPEPSIA Albuterol Sulfate 2 puff 01/03/19 21:24 Ventolin Hfa Inhaler - IH Q4H PRN SHORT OF BREATH/WHEEZING Amlodipine Besylate 10 mg 01/04/19 10:00 01/07/19 09:59 Norvasc - PO 10 mg DAILY ARGELIA Administration Aspirin 81 mg 01/04/19 10:00 01/07/19 09:59 Asa - PO 81 mg DAILY ARGELIA Administration Atorvastatin Calcium 80 mg 01/04/19 22:00 01/06/19 21:20 Lipitor - PO 80 mg HS ARGELIA Administration Bupropion HCl 300 mg 01/05/19 10:00 01/07/19 10:00 Wellbutrin Xl - PO 300 mg DAILY ARGELIA Administration Clonidine 0.2 mg 01/06/19 22:00 01/07/19 06:04 Catapres - PO 0.2 mg BID@0600,2200 ARGELIA Administration Eucalyptus/Menthol/Phenol/Sorbitol 1 each 01/03/19 21:23 Cepastat Lozenge - MM Q4H PRN SORE THROAT Gabapentin 600 mg 01/03/19 22:00 01/07/19 06:04 Neurontin - PO 600 mg TID ARGELIA Administration Guaifenesin 10 ml 01/03/19 21:23 Robitussin - PO Q6H PRN COUGH Ibuprofen 400 mg 01/03/19 21:23 Motrin - PO Q6H PRN Pain Level 4-6 Lisinopril 5 mg 01/07/19 10:00 01/07/19 10:00 Prinivil PO 5 mg DAILY ARGELIA Administration Loperamide HCl 4 mg 01/03/19 21:23 Imodium - PO Q6H PRN DIARRHEA Magnesium Citrate 300 ml 01/03/19 21:23 Citroma - PO Q48H PRN CONSTIPATION Magnesium Hydroxide 30 ml 01/03/19 21:23 Milk Of Magnesia - PO DAILY PRN CONSTIPATION Melatonin 5 mg 01/03/19 22:00 Melatonin PO HS PRN INSOMNIA Methadone HCl 160 mg 01/04/19 07:15 01/07/19 06:03 Dolophine - PO 01/11/19 07:14 160 mg DAILY@0600 ARGELIA Administration Non-Formulary Medication 40 mg 01/07/19 22:00 Pepcid PO HS ARGELIA Multivit/Folic Acid/Iron 1 tab 01/04/19 10:00 01/07/19 10:00 Vitamins (Sjr) - PO 1 tab DAILY ARGELIA Administration Pseudoephedrine/Triprolidine 1 combo 01/03/19 21:23 Actifed - PO TID PRN NASAL CONGESTION Quetiapine Fumarate 150 mg 01/07/19 22:00 Seroquel - PO HS ARGELIA Quetiapine Fumarate 50 mg 01/07/19 10:45 Seroquel - PO DAILY ARGELIA Thiamine HCl 100 mg 01/03/19 22:00 01/06/19 21:20 Vitamin B1 - PO 100 mg HS ARGELIA Administration Medication(s) Change(s): Will d/c Seroquel 100mg HS. Will order Seroquel 50mg daily + Seroquel 150mg HS. Current Side Effect: No Lab tests ordered: No Lab tests reviewed: Yes Provider note:: Patient with a history of schizoaffective disorder and is currently prescribed wellbutrin 300mg XL + Seroquel 100mg HS. Dr. Moulton note read and appreciated. Patient reports past h/o endorsing auditory and visual hallucinations, most recently several weeks ago. She is currently under the care of Dr. Valdez at the [facility] clinic and is prescribed Wellbutrin 300mg XL + Seroquel 200mg BID. External records reviewed. Most recent prescription of seroquel 200mg BID was electronically sent to the pharmacy on 12/24/18, the prescription was for ten days. Today, patient reports worsening irritability and difficulty sleeping. Patient is mentally stable and does not appear fatigue nor sedated. Patient currently denies psychotic symtoms. Will d/c Seroquel 100mg HS and order Seroquel 150mg HS and Seroquel 50mg daily. Total face to face time:: 25 Mental Status Exam - Mental Status Exam Alert and Oriented to: Time, Place, Person Cognitive Function: Good Patient Appearance: Well Groomed Mood: Euthymic Affect: Appropriate Patient Behavior: Cooperative Speech Pattern: Appropriate Voice Loudness: Normal Thought Process: Goal Oriented Thought Disorder: Not Present Hallucinations: Denies Suicidal Ideation: Denies Homicidal Ideation: Denies Insight/Judgement: Poor Sleep: Poorly Appetite: Fair Muscle strength/Tone: Normal Gait/Station: Normal Psychiatric Treatment Plan - Problem List (1) Alcohol dependence Qualifiers: Substance use status: uncomplicated Qualified Code(s): F10.20 - Alcohol dependence, uncomplicated (2) Cocaine dependence Qualifiers: Substance use status: uncomplicated Qualified Code(s): F14.20 - Cocaine dependence, uncomplicated (4) Nicotine dependence Qualifiers: Nicotine product type: cigarettes Substance use status: uncomplicated Qualified Code(s): F17.210 - Nicotine dependence, cigarettes, uncomplicated
[2019-01-07] MEDS: QUEtiapine FUMARATE 50 MG TABLET PO SCH ×2 (11:31→21:18)
[2019-01-07] MEDS: ATORVASTATIN CA 20 MG TABLET (FP) PO SCH (21:17)
[2019-01-07] MEDS: THIAMINE HCL 100 MG TABLET (FP) PO SCH (21:18)
[2019-01-07] MEDS: PEPCID 40 MG PO SCH (21:19)
[2019-01-08] MEDS: GABAPENTIN 300 MG CAPSULE (FP) PO SCH ×3 (06:14→21:32)
[2019-01-08] MEDS: METHADONE HCL 40 MG DISPERSABLE TABLET PO SCH (06:14)
[2019-01-08] MEDS: cloNIDine HCL 0.1 MG TABLET PO SCH ×2 (06:15→21:32)
[2019-01-08] MEDS: ASPIRIN 81 MG CHEWABLE TABLETS PO SCH (09:58)
[2019-01-08] MEDS: PRENATAL VITAMINS W/ FOLIC ACID TABLET (FP) PO SCH (09:58)
[2019-01-08] MEDS: amLODIPine BESYLATE 10 MG TABLET (FP) PO SCH (09:58)
[2019-01-08] MEDS: QUEtiapine FUMARATE 50 MG TABLET PO SCH ×2 (09:59→21:32)
[2019-01-08] MEDS: LISINOPRIL 5 MG TABLET (FP) PO SCH (09:59)
[2019-01-08] MEDS: THIAMINE HCL 100 MG TABLET (FP) PO SCH (21:32)
[2019-01-08] MEDS: ATORVASTATIN CA 20 MG TABLET (FP) PO SCH (21:32)
[2019-01-08] MEDS: PEPCID 40 MG PO SCH (21:34)
[2019-01-09] MEDS: METHADONE HCL 40 MG DISPERSABLE TABLET PO SCH (06:21)
[2019-01-09] MEDS: cloNIDine HCL 0.1 MG TABLET PO SCH ×2 (06:23→21:13)
[2019-01-09] MEDS: GABAPENTIN 300 MG CAPSULE (FP) PO SCH ×3 (06:23→21:40)
--- NOTE | 2019-01-09 06:57 | PN ---
[facility] Progress Note Note: Patient was seen and evaluated at bedside status post a fall. She reports that she was ambulating to the bathroom and she fell in front on her buttocks in front of her room. Fall was witnessed by a staff, Ms. Laura Boston. She denies pain or discomfort at this time. No injury noted or reported. Patient is alert and oriented to person, place and time. Vital signs stable. Fall protocol #2 initiated. Vital signs within patient's norm . Vital Signs Temperature 98.6 F 01/09/19 06:55 Pulse Rate 80 01/09/19 06:55 Respiratory Rate 18 01/09/19 06:55 Blood Pressure 153/84 01/09/19 06:55 O2 Sat by Pulse Oximetry (%)
[2019-01-09] MEDS: ASPIRIN 81 MG CHEWABLE TABLETS PO SCH (09:10)
[2019-01-09] MEDS: PRENATAL VITAMINS W/ FOLIC ACID TABLET (FP) PO SCH (09:10)
[2019-01-09] MEDS: amLODIPine BESYLATE 10 MG TABLET (FP) PO SCH (09:10)
[2019-01-09] MEDS: LISINOPRIL 5 MG TABLET (FP) PO SCH (09:11)
[2019-01-09] MEDS: QUEtiapine FUMARATE 50 MG TABLET PO SCH ×2 (09:11→21:13)
--- NOTE | 2019-01-09 11:21 | PN ---
[facility] Progress Note (SOAP) Subjective: Client is requesting more clonidine for her blood pressure. Presently on 0.2 mg twice a day. Also requesting psych consult because she want seroquel more frequently. Also states she is not getting her pepcid. Objective: asymptomatic, BP elevated when agitated (last BP taken when patient was discussing need for more seroquel. 01/09/19 14:20 Vital Signs (72 hours) 01/06/19 01/07/19 01/07/19 15:31 07:09 09:27 Temperature 97.3 F L Pulse Rate 64 56 L 75 Respiratory 18 18 Rate Blood Pressure 152/80 170/92 133/87 01/08/19 01/08/19 01/08/19 00:30 06:59 09:58 Temperature 97.1 F L Pulse Rate 69 60 Respiratory 18 18 Rate Blood Pressure 186/108 H 117/65 01/08/19 01/09/19 01/09/19 20:40 05:25 06:55 Temperature 98.6 F 98.6 F Pulse Rate 76 80 80 Respiratory 18 18 Rate Blood Pressure 175/92 H 153/84 153/84 01/09/19 01/09/19 01/09/19 07:25 07:31 09:25 Temperature 97.9 F 97.9 F 100.9 F H Pulse Rate 76 76 69 Respiratory 18 18 18 Rate Blood Pressure 138/91 138/91 130/74 01/09/19 01/09/19 11:25 13:25 Temperature 97.2 F L 97.2 F L Pulse Rate 66 80 Respiratory 18 18 Rate Blood Pressure 148/79 152/88 Assessment: 01/09/19 14:23 Hypertensive, actively withdrawing. Plan: Encouraged client to relax; will continue to monitor BP. psych consult initiated, advised client that pepcid was given yesterday with bedtime medication administration.
--- NOTE | 2019-01-09 17:46 | PN ---
[facility] Progress Note Note: asymptomatic elevated BP BP R190/72 BP L 180/103 p71 one time dose clonidine increase PO fluids repeat v/s in an hour continue to monitor
[2019-01-09] MEDS ORDERED: cloNIDine HCL 0.1 MG TABLET PO ONE (18:00)
[2019-01-09] MEDS: THIAMINE HCL 100 MG TABLET (FP) PO SCH (21:12)
[2019-01-09] MEDS: ATORVASTATIN CA 20 MG TABLET (FP) PO SCH (21:12)
[2019-01-09] MEDS: PEPCID 40 MG PO SCH (21:35)
[2019-01-09] MEDS ORDERED: PT OWN MED DRAWER 7, Y5N ONE (23:17)
[2019-01-10] MEDS: METHADONE HCL 40 MG DISPERSABLE TABLET PO SCH (06:16)
[2019-01-10] MEDS: GABAPENTIN 300 MG CAPSULE (FP) PO SCH (06:30)
[2019-01-10] MEDS: cloNIDine HCL 0.1 MG TABLET PO SCH (06:30)
[2019-01-10 07:03] VITALS: TEMP 97.1
[2019-01-10] MEDS: amLODIPine BESYLATE 10 MG TABLET (FP) PO SCH (10:47)
[2019-01-10] MEDS: ASPIRIN 81 MG CHEWABLE TABLETS PO SCH (10:47)
[2019-01-10] MEDS: LISINOPRIL 5 MG TABLET (FP) PO SCH (10:47)
[2019-01-10] MEDS: PRENATAL VITAMINS W/ FOLIC ACID TABLET (FP) PO SCH (10:47)
[2019-01-10] MEDS: QUEtiapine FUMARATE 50 MG TABLET PO SCH (10:48)
[2019-01-10 11:12] VITALS: BP 122/75; PULSE 74
[2019-01-10] MEDS ORDERED: PT OWN MED DRAWER 7, Y5N ONE (11:45)
--- NOTE | 2019-01-10 12:05 | PN ---
[facility] Progress Note Note: Patient is discharged today. Scripts for her medications for 30 days supply of medications(Seroquel 50mg daily &150mg hs, WellbutrinXL 300 mg daily) are electronically transmitted to [facility] at [address] [place] [address]
--- NOTE | 2019-01-10 12:38 | PN ---
[facility] Progress Note Note: PT MET WITH HER COUNSELOR MS LING VAZQUEZ AND REQUESTED FOR EARLY DISCHARGE FOR PERSONAL REASONS. PT HAS BEEN REFERRED BACK TO HER CD DAY PROGRAM AT [facility] ON [address], [place]. PT ALSO REPORTS SHE HAS A PCP, DR. HAMLET YANG AT [facility](SAME LOCATION). PT PT CAME IN WITH HER OWN MEDS AND STATES SHE HAS NO NEED FOR RX AND WILL FOLLOW UP WITH HERE PCP. PT IS ALERT O X 3. DENIES S /H/I. Home Medications Medication Instructions Recorded Gabapentin 600 mg PO TID 09/10/18 Atorvastatin Calcium [Lipitor] 80 mg PO DAILY 09/12/18 Aspirin 81 mg PO DAILY #14 tab.chew 09/19/18 Quetiapine Fumarate [Seroquel -] 200 mg PO BID #60 tablet 09/19/18 Albuterol Sulfate Inhaler - 2 puff IH Q4H PRN #1 inhaler 10/20/18 [Ventolin HFA Inhaler -] Amlodipine Besylate [Norvasc -] 10 mg PO DAILY #14 tablet 10/20/18 Methadone [Dolophine -] 160 mg PO DAILY 01/03/19 cloNIDine HCL [Catapres -] 0.2 mg PO BID 01/03/19 Lisinopril [Prinivil] 1 tab PO DAILY 01/06/19 Famotidine [Pepcid] 40 mg PO HS #14 tablet 01/07/19 Pepcid 40 mg PO HS 01/07/19 Bupropion HCl [Wellbutrin Xl -] 300 mg PO DAILY #30 tab.sr.24h 01/10/19 Quetiapine Fumarate [Seroquel -] 50 mg PO DAILY #30 tablet 01/10/19 Quetiapine Fumarate [Seroquel -] 150 mg PO HS #90 tablet 01/10/19 Vital Signs - 24 hr 01/09/19 01/09/19 01/09/19 13:25 15:25 17:25 Temperature 97.2 F L 98 F 97.4 F L Pulse Rate 80 66 71 Respiratory 18 18 18 Rate Blood Pressure 152/88 164/90 180/103 H 01/09/19 01/10/19 01/10/19 21:25 01:25 03:30 Temperature 97.8 F 97.2 F L Pulse Rate 69 70 Respiratory 18 18 18 Rate Blood Pressure 152/101 H 143/86 01/10/19 01/10/19 05:25 10:00 Temperature 97.1 F L Pulse Rate 61 74 Respiratory 18 Rate Blood Pressure 185/102 H 122/75 NAD MEDICALLY STABLE PLAN:FOLLOW UP WITH [facility] CD AFTERCARE RECOMMENDED ON 01/13/19 FOLLOW UP WITH YOUR PMD DR. YANG WITHIN 1 WEEK AFTER DISCHARGE.
[2019-01-11] MEDS ORDERED: METHADONE HCL 40 MG DISPERSABLE TABLET PO SCH (06:00)
== END 2019-01-10 12:45 | disposition home or self-care (01) | DRG 772 ==
LOC: YASAS 14:31 → Y3E 19:03
PROVIDERS: ADMIT Neuromusculoskeletal Medicine & OMM; ATTEND Neuromusculoskeletal Medicine & OMM
PROC: HZ42ZZZ Group Counseling for Substance Abuse Treatment, Cognitive-Behavioral (ICD-10-PCS; principal; 2019-01-03)
DX: F10.20 Alcohol dependence, uncomplicated (principal); F11.20 Opioid dependence, uncomplicated; F14.20 Cocaine dependence, uncomplicated; F17.210 Nicotine dependence, cigarettes, uncomplicated; F25.9 Schizoaffective disorder, unspecified; D64.9 Anemia, unspecified; I10 Essential (primary) hypertension; J45.909 Unspecified asthma, uncomplicated; K21.9 Gastro-esophageal reflux disease without esophagitis; E78.5 Hyperlipidemia, unspecified; G62.9 Polyneuropathy, unspecified; M16.0 Bilateral primary osteoarthritis of hip; G47.00 Insomnia, unspecified; R26.2 Difficulty in walking, not elsewhere classified; Z99.89 Dependence on other enabling machines and devices; Z91.81 History of falling
CPT/HCPCS: 81003; J0735

== ENCOUNTER 2019-07-15 18:18 | Inpatient (IN) | payer OTHER ==
[2019-07-15 19:52] VITALS: BMI 27.2
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
[2019-07-15] MEDS ORDERED: ACETAMINOPHEN 325 MG TABLET (FP) PO PRN ×2 (22:06)
[2019-07-15] MEDS ORDERED: NICOTINE POLACRILEX 2 MG GUM BUC PRN (22:06)
[2019-07-15] MEDS ORDERED: METHOCARBAMOL 500 MG TABLET PO PRN (22:06)
[2019-07-15] MEDS ORDERED: MAG HYDROX/AL HYDROX/SIMETH 30 ML UNIT-DOSE CUP PO PRN (22:06)
[2019-07-15] MEDS ORDERED: BISMUTH SUBSALICYLATE 524 MG/30 ML UD PO PRN (22:06)
[2019-07-15] MEDS ORDERED: MENTHOL/PHENOL 1 EACH UD MM PRN (22:06)
[2019-07-15] MEDS ORDERED: chlordiazePOXIDE HCL 25 MG CAPSULE PO PRN (22:06)
[2019-07-15] MEDS ORDERED: IBUPROFEN 400 MG TABLET (FP) PO PRN (22:06)
[2019-07-15] MEDS ORDERED: MAGNESIUM HYDROX 2400MG/30ML ORAL SUSPENSION 30 ML CUP PO PRN (22:06)
[2019-07-15] MEDS ORDERED: MAGNESIUM CITRATE 300 ML BOTTLE PO PRN (22:06)
[2019-07-15] MEDS: chlordiazePOXIDE HCL 25 MG CAPSULE PO SCH (23:04)
[2019-07-15] MEDS: hydrOXYzine PAMOATE 25 MG CAPSULE (FP) PO PRN (23:06)
[2019-07-15] MEDS: MELATONIN 5 MG TABLETS PO PRN (23:08)
[2019-07-15] MEDS ORDERED: ALBUTEROL SO4 8 GM HFA INHALER IH PRN (23:40)
[2019-07-15] MEDS: cloNIDine HCL 0.1 MG TABLET PO SCH (23:47)
[2019-07-16] MEDS: GABAPENTIN 300 MG CAPSULE (FP) PO SCH ×3 (06:51→23:10)
[2019-07-16] MEDS: chlordiazePOXIDE HCL 25 MG CAPSULE PO SCH ×4 (06:52→23:10)
--- NOTE | 2019-07-16 08:59 | PN ---
[facility] CIWA - CIWA Score Nausea/Vomitin-Mild Nausea/No Vomiting Muscle Tremors: 3 Anxiety: 3 Agitation: 3 Paroxysmal Sweats: 1-Minimal Palms Moist Orientation: 2-Disoriented Date<2 days (date of week and day of month) Tacttile Disturbances: 1-Very Mild Itch/Numbness Auditory Disturbances: 0-None Visual Disturbances: 0-None Headache: 0-None Present CIWA-Ar Total Score: 14 [facility] Progress Note (SOAP) Subjective: 64 years old female admitted on 07/15/19 for alcohol withdrawal sx management doing well with librium detox regimen eating breakfast sitting on bed methadone 160 mg po daily need to be verified ambulating with walker Objective: 07/16/19 09:02 Vital Signs Temperature 96.8 F L 07/16/19 06:05 Pulse Rate 58 L 07/16/19 06:05 Respiratory Rate 16 07/16/19 06:05 Blood Pressure 149/78 07/16/19 06:05 O2 Sat by Pulse Oximetry (%) 07/16/19 09:02 long history of hypertension hyperlipidemia neurogenic pain and nicotine addiction lab pending Assessment: 07/16/19 09:03 alcohol withdrawal sx Plan: continue librium detox regimen
--- NOTE | 2019-07-16 09:44 | EKG ---
Test Reason : Blood Pressure : / mmHG Vent. Rate : 070 BPM Atrial Rate : 070 BPM P-R Int : 154 ms QRS Dur : 068 ms QT Int : 412 ms P-R-T Axes : 070 056 041 degrees QTc Int : 444 ms POOR DATA QUALITY, INTERPRETATION MAY BE ADVERSELY AFFECTED NORMAL SINUS RHYTHM WITH SINUS ARRHYTHMIA MINIMAL VOLTAGE CRITERIA FOR LVH, MAY BE NORMAL VARIANT POSSIBLE ANTERIOR INFARCT , AGE UNDETERMINED ABNORMAL ECG WHEN COMPARED WITH ECG OF 19-OCT-2018 13:17, ST NOW DEPRESSED IN ANTERIOR LEADS Confirmed by SMITH DANIEL, RUFINO ([id number]) on 07/16/2019 9:43:55 AM Referred By: Confirmed By:RUFINO MTZ MD
[2019-07-16 09:49] LABS: HEMATOCRIT 35.4 % (32.4-45.2); HEMOGLOBIN 11.5 GM/dL (10.7-15.3); MCH 28.9 pg (25.7-33.7); MCHC 32.6 g/dl (32.0-36.0); MEAN CELL VOLUME 88.9 fl (80-96); MEAN PLT VOLUME 8.9 fl (7.5-11.1); PLATELET COUNT 226 K/MM3 (134-434); RBC 3.98 M/mm3 (3.60-5.2); RDW 14.7 % (11.6-15.6)
[2019-07-16 10:28] LABS: BILIRUBIN,TOTAL 0.3 mg/dL (0.2-1); BLOOD UREA NITROGEN 12.4 mg/dL (7-18); CALCIUM 8.8 mg/dL (8.5-10.1); CREATININE 0.9 mg/dL (0.55-1.3); TOT PROT 6.3 g/dl (6.4-8.2)
[2019-07-16] MEDS: PRENATAL VITAMINS W/ FOLIC ACID TABLET (FP) PO SCH (11:39)
[2019-07-16] MEDS: cloNIDine HCL 0.1 MG TABLET PO SCH ×2 (11:39→23:10)
[2019-07-16] MEDS: ASPIRIN 81 MG CHEWABLE TABLETS PO SCH (11:40)
[2019-07-16] MEDS: NICOTINE 14 MG/24 HOURS TOPICAL PATCH TD SCH (11:46)
[2019-07-16] MEDS: amLODIPine BESYLATE 10 MG TABLET (FP) PO SCH (12:37)
[2019-07-16] MEDS ORDERED: METHADONE HCL 40 MG DISPERSABLE TABLET PO ONE (12:45)
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
[2019-07-16] MEDS: THIAMINE HCL 100 MG TABLET (FP) PO SCH (23:10)
[2019-07-16] MEDS: QUEtiapine FUMARATE 100 MG TABLET (FP) PO SCH (23:11)
[2019-07-16] MEDS: ATORVASTATIN CA 80 MG TABLET (FP) PO SCH (23:11)
[2019-07-17] MEDS: METHADONE HCL 40 MG DISPERSABLE TABLET PO SCH (05:41)
[2019-07-17] MEDS: chlordiazePOXIDE HCL 25 MG CAPSULE PO SCH ×4 (05:42→22:04)
[2019-07-17] MEDS: GABAPENTIN 300 MG CAPSULE (FP) PO SCH ×3 (05:42→22:04)
[2019-07-17] MEDS: cloNIDine HCL 0.1 MG TABLET PO SCH ×2 (10:32→22:05)
[2019-07-17] MEDS: ASPIRIN 81 MG CHEWABLE TABLETS PO SCH (10:32)
[2019-07-17] MEDS: NICOTINE 14 MG/24 HOURS TOPICAL PATCH TD SCH (10:32)
[2019-07-17] MEDS: amLODIPine BESYLATE 10 MG TABLET (FP) PO SCH (10:33)
[2019-07-17] MEDS: PRENATAL VITAMINS W/ FOLIC ACID TABLET (FP) PO SCH (10:34)
--- NOTE | 2019-07-17 12:07 | PN ---
S CIWA - CIWA Score Nausea/Vomitin-Mild Nausea/No Vomiting Muscle Tremors: 1-None Visible, but Connell Anxiety: 1-Mildly Anxious Agitation: 1-Slight > Activity Paroxysmal Sweats: No Perspiration Orientation: 0-Oriented Tacttile Disturbances: 1-Very Mild Itch/Numbness Auditory Disturbances: 0-None Visual Disturbances: 0-None Headache: 1-Very Mild CIWA-Ar Total Score: 6 [facility] Progress Note (SOAP) Subjective: alert,pain in the hip,interrupted sleep,use walker for ambulatory aid Objective: 07/17/19 12:06 Vital Signs Temperature 96.7 F L 07/17/19 09:20 Pulse Rate 54 L 07/17/19 09:20 Respiratory Rate 16 07/17/19 09:20 Blood Pressure 140/86 07/17/19 09:20 O2 Sat by Pulse Oximetry (%) 07/17/19 12:06 Laboratory Last Values WBC 6.0 K/mm3 (4.0-10.0) 07/16/19 08:15 RBC 3.98 M/mm3 (3.60-5.2) 07/16/19 08:15 Hgb 11.5 GM/dL (10.7-15.3) 07/16/19 08:15 Hct 35.4 % (32.4-45.2) 07/16/19 08:15 MCV 88.9 fl (80-96) 07/16/19 08:15 MCH 28.9 pg (25.7-33.7) 07/16/19 08:15 MCHC 32.6 g/dl (32.0-36.0) 07/16/19 08:15 RDW 14.7 % (11.6-15.6) 07/16/19 08:15 Plt Count 226 K/MM3 (134-434) 07/16/19 08:15 MPV 8.9 fl (7.5-11.1) 07/16/19 08:15 Sodium 144 mmol/L (136-145) 07/16/19 08:15 Potassium 4.0 mmol/L (3.5-5.1) 07/16/19 08:15 Chloride 106 mmol/L (98-107) 07/16/19 08:15 Carbon Dioxide 32 mmol/L (21-32) 07/16/19 08:15 Anion Gap 6 MMOL/L (8-16) L 07/16/19 08:15 BUN 12.4 mg/dL (7-18) 07/16/19 08:15 Creatinine 0.9 mg/dL (0.55-1.3) 07/16/19 08:15 Est GFR (CKD-EPI)AfAm 77.77 07/16/19 08:15 Est GFR (CKD-EPI)NonAf 67.10 07/16/19 08:15 Random Glucose 64 mg/dL (74-106) L 07/16/19 08:15 Calcium 8.8 mg/dL (8.5-10.1) 07/16/19 08:15 Total Bilirubin 0.3 mg/dL (0.2-1) 07/16/19 08:15 AST 18 U/L (15-37) 07/16/19 08:15 ALT 24 U/L (13-61) 07/16/19 08:15 Alkaline Phosphatase 122 U/L (45-117) H 07/16/19 08:15 Total Protein 6.3 g/dl (6.4-8.2) L 07/16/19 08:15 Albumin 3.0 g/dl (3.4-5.0) L 07/16/19 08:15 RPR Titer Nonreactive (NONREACTIVE) 07/16/19 08:15 Assessment: 07/17/19 12:07 withdrawal symptom Plan: continue detox ,librium regimen,close monitoring
[2019-07-17] MEDS: ATORVASTATIN CA 80 MG TABLET (FP) PO SCH (22:04)
[2019-07-17] MEDS: THIAMINE HCL 100 MG TABLET (FP) PO SCH (22:04)
[2019-07-17] MEDS: QUEtiapine FUMARATE 100 MG TABLET (FP) PO SCH (22:05)
[2019-07-17] MEDS: hydrOXYzine PAMOATE 25 MG CAPSULE (FP) PO PRN (22:08)
[2019-07-18] MEDS ORDERED: chlordiazePOXIDE HCL 10 MG CAPSULE PO PRN
[2019-07-18] MEDS: METHADONE HCL 40 MG DISPERSABLE TABLET PO SCH (07:51)
[2019-07-18] MEDS: GABAPENTIN 300 MG CAPSULE (FP) PO SCH ×3 (07:51→22:35)
[2019-07-18] MEDS: chlordiazePOXIDE HCL 10 MG CAPSULE PO SCH ×4 (07:51→22:35)
[2019-07-18] MEDS: amLODIPine BESYLATE 10 MG TABLET (FP) PO SCH (10:25)
[2019-07-18] MEDS: ASPIRIN 81 MG CHEWABLE TABLETS PO SCH (10:25)
[2019-07-18] MEDS: PRENATAL VITAMINS W/ FOLIC ACID TABLET (FP) PO SCH (10:25)
[2019-07-18] MEDS: NICOTINE 14 MG/24 HOURS TOPICAL PATCH TD SCH (10:26)
[2019-07-18] MEDS: cloNIDine HCL 0.1 MG TABLET PO SCH ×2 (10:42→22:37)
--- NOTE | 2019-07-18 11:20 | PN ---
[facility] CIWA - CIWA Score Nausea/Vomitin-No Nausea/No Vomiting Muscle Tremors: 2 Anxiety: 1-Mildly Anxious Agitation: 2 Paroxysmal Sweats: 2 Orientation: 2-Disoriented Date<2 days Tacttile Disturbances: 0-None Auditory Disturbances: 0-None Visual Disturbances: 1-Very Mild Sensitivity Headache: 0-None Present CIWA-Ar Total Score: 10 [facility] Progress Note (SOAP) Subjective: Sweating, Tremors. Objective: PATIENT A & O X 2 (UNCERTAIN ABOUT CURRENT DAY/ DATE), OBSERVED AMBULATING ON DETOX UNIT WITH ASSISTANCE OF A WALKER. 07/18/19 11:22 Vital Signs Temperature 97.6 F 07/18/19 10:40 Pulse Rate 56 L 07/18/19 10:40 Respiratory Rate 18 07/18/19 10:40 Blood Pressure 117/78 07/18/19 10:40 O2 Sat by Pulse Oximetry (%) Laboratory Tests 07/16/19 07/16/19 07/16/19 08:15 08:15 08:15 WBC 6.0 RBC 3.98 Hgb 11.5 Hct 35.4 MCV 88.9 MCH 28.9 MCHC 32.6 RDW 14.7 Plt Count 226 MPV 8.9 Sodium 144 Potassium 4.0 Chloride 106 Carbon Dioxide 32 Anion Gap 6 L BUN 12.4 Creatinine 0.9 Est GFR (CKD-EPI)AfAm 77.77 Est GFR (CKD-EPI)NonAf 67.10 Random Glucose 64 L Calcium 8.8 Total Bilirubin 0.3 AST 18 ALT 24 Alkaline Phosphatase 122 H Total Protein 6.3 L Albumin 3.0 L RPR Titer Nonreactive LABS NOTED. Assessment: 07/18/19 11:23 WITHDRAWAL SYMPTOMS. Plan: CONTINUE DETOX. PATIENT TO BE SENT VIA AMBULANCE TO [facility] FOR FURTHER MEDICAL EVALUATION AFTER A FALL. SEE FOLLOWING [facility] DETOX PROGRESS NOTE.
--- NOTE | 2019-07-18 11:36 | PN ---
[facility] Progress Note Note: PATIENT HAD UNWITNESSED FALL WHILE TRYING TO SHIFT OVER FROM HER WALKER TO GET INTO BED IN HER ROOM. ACCORDING TO PATIENT, SHE FELL TO FLOOR AND LANDED PRIMARILY ON UPPER ASPECT OF HER RIGHT LEG. PATIENT ALSO LANDED ON HER RIGHT HAND, SHE USED HER RIGHT HAND TO TRY TO BREAK HER FALL. PATIENT DENIES HITTING ANY OTHER PART OF HER BODY DURING FALL. PATIENT DENIES PAIN IN ANY PART OF HER BODY AT THIS TIME, INCLUDING HEAD, RIGHT HAND/WRIST, AND IN RIGHT LEG. PATIENT REPORTS HISTORY OF "SYNCOPE." PATIENT DENIES N/V, H/A, AND DIZZINESS. NO WOUNDS, DISCHARGE, SWELLING, OR ERYTHEMA NOTED ON PATIENT'S HEAD. PATIENT A & O X 2 (UNCERTAIN ABOUT CURRENT DAY/DATE BY 1 DAY). EOM INTACT. PUPILS CONSTRICTED. VS: BP: 117/78; P: 66; RR: 18; T: 97.6. [facility] FALL PROTOCOL# [address] IMPLEMENTED. REPORT GIVEN TO DR. HARTLEY AT [facility]. PATIENT TO BE TAKEN VIA AMBULANCE TO [facility] FOR FURTHER MEDICAL EVALUATION. Blanca WELCH NP
--- NOTE | 2019-07-18 15:13 | PN ---
[facility] Progress Note Note: DUE TO LAST SEVERAL BP READINGS BEING RELATIVELY LOW, DAILY DOSE OF CLONIDINE REDUCED TO 0.2 MG PO BID, TO BE STARTED THIS EVENING PENDING PATIENT'S EVALUATION AT [facility]. WILL CONTINUE TO MONITOR AND RE- EVALUATE OVER NEXT FEW SUBSEQUENT BP READINGS. Blanca WELCH OCCUPATIONAL WORK EXPERIENCE TEACHER
--- NOTE | 2019-07-18 20:25 | PN ---
[facility] Progress Note Note: Returned from ED. [facility] Ed notes reviewed. A&Ox3. Denies pain. Discussed position change to avoid possible dizziness. Returned to unit and continue detox.
[2019-07-18] MEDS: THIAMINE HCL 100 MG TABLET (FP) PO SCH (22:35)
[2019-07-18] MEDS: ATORVASTATIN CA 80 MG TABLET (FP) PO SCH (22:35)
[2019-07-18] MEDS: QUEtiapine FUMARATE 100 MG TABLET (FP) PO SCH (22:35)
[2019-07-18] MEDS: hydrOXYzine PAMOATE 25 MG CAPSULE (FP) PO PRN (22:37)
[2019-07-19] MEDS: METHADONE HCL 40 MG DISPERSABLE TABLET PO SCH (05:29)
[2019-07-19] MEDS: chlordiazePOXIDE HCL 10 MG CAPSULE PO SCH ×2 (05:29→18:06)
[2019-07-19] MEDS: GABAPENTIN 300 MG CAPSULE (FP) PO SCH ×3 (05:29→22:11)
--- NOTE | 2019-07-19 08:31 | PN ---
[facility] Progress Note Note: Patient fell in day room. Fall was not witnessed by a staff. Patient reports that she was transferring from her walker to the chair and fell. She denies LOC , dizziness and pain. No injury noted on examination. Fall was not witnessed by a staff. Fall protocol #1 initiated. Patient has a very unsteady gait and appears drowsy with a history of multiple falls. She was status post a fall yesterday at 10.40AM. Ammonia level ordered and 1:1 constant observation initiated. Senior Manager Creative Services Ms. Alfred notified by the nurse, Ms Kramer. Vital Signs Temperature 97 F L 07/19/19 06:40 Pulse Rate 58 L 07/19/19 06:40 Respiratory Rate 18 07/19/19 06:40 Blood Pressure 136/72 07/19/19 06:40 O2 Sat by Pulse Oximetry (%) Action: Evaluate patient in ER
--- NOTE | 2019-07-19 09:32 | PN ---
[facility] CIWA - CIWA Score Nausea/Vomitin-No Nausea/No Vomiting Muscle Tremors: None Anxiety: 4-Mod. Anxious/Guarded Agitation: 3 Paroxysmal Sweats: 2 Orientation: 2-Disoriented Date<2 days Tacttile Disturbances: 0-None Auditory Disturbances: 0-None Visual Disturbances: 1-Very Mild Sensitivity Headache: 0-None Present CIWA-Ar Total Score: 12 [facility] Progress Note (SOAP) Subjective: Anxious, Sweating, Fatigue. Objective: PATIENT A & O X 2, OBSERVED AMBULATING ON DETOX UNIT WITH ASSISTANCE OF A WALKER. PATIENT MAINTAINED ON A 1:1 CONTINUOUS OBSERVATION FOR SAFETY. 07/19/19 09:34 Vital Signs Temperature 97.3 F L 07/19/19 07:50 Pulse Rate 61 07/19/19 07:50 Respiratory Rate 18 07/19/19 07:50 Blood Pressure 119/73 07/19/19 07:50 O2 Sat by Pulse Oximetry (%) Laboratory Tests 07/16/19 07/16/19 07/16/19 08:15 08:15 08:15 WBC 6.0 RBC 3.98 Hgb 11.5 Hct 35.4 MCV 88.9 MCH 28.9 MCHC 32.6 RDW 14.7 Plt Count 226 MPV 8.9 Sodium 144 Potassium 4.0 Chloride 106 Carbon Dioxide 32 Anion Gap 6 L BUN 12.4 Creatinine 0.9 Est GFR (CKD-EPI)AfAm 77.77 Est GFR (CKD-EPI)NonAf 67.10 Random Glucose 64 L Calcium 8.8 Total Bilirubin 0.3 AST 18 ALT 24 Alkaline Phosphatase 122 H Total Protein 6.3 L Albumin 3.0 L RPR Titer Nonreactive LABS NOTED. Assessment: 07/19/19 09:39 WITHDRAWAL SYMPTOMS. Plan: CONTINUE DETOX. PATIENT TO BE TAKEN TO [facility] ER VIA AMBULANCE FOR FURTHER MEDICAL EVALUATION AFTER FALL. SEE FOLLOWING [facility] DETOX PROGRESS NOTE.
--- NOTE | 2019-07-19 10:00 | PN ---
[facility] Progress Note Note: PATIENT FELL WHILE TRYING TO REACH FOR HER WALKER. FALL WAS UNWITNESSED BY DETOX UNIT STAFF; HOWEVER, WAS WITNESSED BY SEVERAL OTHER PATIENTS. PATIENT REPORTS THAT HER KNEES FELL TO FLOOR. HOWEVER, SHE DENIES ANY OTHER OTHER PART OF HER BODY FALLING TO FLOOR DURING FALL. PATIENT DENIES INJURY TO HEAD DURING FALL. NO WOUNDS, SWELLING, ERYTHEMA, OR DISCHARGE NOTED ON PATIENT'S HEAD. PATIENT APPEARS AGITATED. PATIENT'S GAIT APPEARS WEAK DESPITE USE OF WALKER. PATIENT PLACED ON 1:1 CONTINUOUS OBSERVATION FOR SAFETY. [facility] FALL PROTOCOL # 1 PREVIOUSLY IMPLEMENTED YESTERDAY AFTER FALL THAT PATIENT HAD A THAT TIME. VS: BP: 126/69; P: 54: RR: 18; T: 96.7. REPORT GIVEN TO DR. SEGOVIA AT [facility]. PATIENT TAKEN VIA AMBULANCE TO [facility] FOR FURTHER MEDICAL EVALUATION. Blanca WELCH NP
[2019-07-19] MEDS: ASPIRIN 81 MG CHEWABLE TABLETS PO SCH (11:30)
[2019-07-19] MEDS: PRENATAL VITAMINS W/ FOLIC ACID TABLET (FP) PO SCH (11:31)
[2019-07-19] MEDS: amLODIPine BESYLATE 10 MG TABLET (FP) PO SCH (11:31)
[2019-07-19] MEDS: cloNIDine HCL 0.1 MG TABLET PO SCH (11:31)
[2019-07-19] MEDS: NICOTINE 14 MG/24 HOURS TOPICAL PATCH TD SCH (11:31)
[2019-07-19] MEDS: hydrOXYzine PAMOATE 25 MG CAPSULE (FP) PO PRN ×2 (18:29→23:56)
--- NOTE | 2019-07-19 20:57 | PN ---
[facility] Progress Note Note: patient returned fro er after evaluation for unwitnessed fall from [facility] ct of head no evidence of intracranial patholoigy medically clear to return to [facility] for continuation of care alert,oriented x 3 Vital Signs Temperature 96.9 F L 07/19/19 18:19 Pulse Rate 55 L 07/19/19 18:19 Respiratory Rate 18 07/19/19 18:19 Blood Pressure 131/73 07/19/19 18:19 O2 Sat by Pulse Oximetry (%) ambulation with walker treatment continue fall protocol 1 close monitoring continue one on one for patient's safety
[2019-07-19] MEDS: ATORVASTATIN CA 80 MG TABLET (FP) PO SCH (22:11)
[2019-07-19] MEDS: THIAMINE HCL 100 MG TABLET (FP) PO SCH (22:11)
[2019-07-19] MEDS: cloNIDine HCL 0.1 MG TABLET PO PRN (23:13)
[2019-07-20] MEDS ORDERED: chlordiazePOXIDE HCL 10 MG CAPSULE PO ONE (05:00)
[2019-07-20] MEDS: METHADONE HCL 40 MG DISPERSABLE TABLET PO SCH (05:35)
[2019-07-20] MEDS: hydrOXYzine PAMOATE 25 MG CAPSULE (FP) PO PRN (05:35)
[2019-07-20] MEDS: GABAPENTIN 300 MG CAPSULE (FP) PO SCH ×3 (05:35→22:00)
[2019-07-20] MEDS: PRENATAL VITAMINS W/ FOLIC ACID TABLET (FP) PO SCH (10:37)
[2019-07-20] MEDS: amLODIPine BESYLATE 10 MG TABLET (FP) PO SCH (10:37)
[2019-07-20] MEDS: ASPIRIN 81 MG CHEWABLE TABLETS PO SCH (10:37)
[2019-07-20] MEDS: NICOTINE 14 MG/24 HOURS TOPICAL PATCH TD SCH (10:41)
[2019-07-20] MEDS: cloNIDine HCL 0.1 MG TABLET PO PRN ×2 (10:51→22:01)
--- NOTE | 2019-07-20 14:27 | PN ---
S CIWA - CIWA Score Nausea/Vomitin-No Nausea/No Vomiting Muscle Tremors: 3 Anxiety: 1-Mildly Anxious Agitation: 1-Slight > Activity Paroxysmal Sweats: 1-Minimal Palms Moist Orientation: 0-Oriented Tacttile Disturbances: 0-None Auditory Disturbances: 0-None Visual Disturbances: 0-None Headache: 1-Very Mild CIWA-Ar Total Score: 7 [facility] Progress Note (SOAP) Subjective: 64 years old female admitted on 07/15/19 for alcohol and benzo withdrawal sx management treated with librium detox regimen patient tolerated well at this time return from ER negative ct ambulating with walker steady gait 1:1 for frequent fall patient stated that she lives along in the residential going to methadone program daily taking 160 mg po daily Objective: 07/20/19 14:38 Vital Signs Temperature 96.4 F L 07/20/19 09:22 Pulse Rate 50 L 07/20/19 09:22 Respiratory Rate 18 07/20/19 09:22 Blood Pressure 129/82 07/20/19 09:22 O2 Sat by Pulse Oximetry (%) 07/20/19 14:38 Laboratory Last Values WBC 6.0 K/mm3 (4.0-10.0) 07/16/19 08:15 RBC 3.98 M/mm3 (3.60-5.2) 07/16/19 08:15 Hgb 11.5 GM/dL (10.7-15.3) 07/16/19 08:15 Hct 35.4 % (32.4-45.2) 07/16/19 08:15 MCV 88.9 fl (80-96) 07/16/19 08:15 MCH 28.9 pg (25.7-33.7) 07/16/19 08:15 MCHC 32.6 g/dl (32.0-36.0) 07/16/19 08:15 RDW 14.7 % (11.6-15.6) 07/16/19 08:15 Plt Count 226 K/MM3 (134-434) 07/16/19 08:15 MPV 8.9 fl (7.5-11.1) 07/16/19 08:15 Sodium 144 mmol/L (136-145) 07/16/19 08:15 Potassium 4.0 mmol/L (3.5-5.1) 07/16/19 08:15 Chloride 106 mmol/L (98-107) 07/16/19 08:15 Carbon Dioxide 32 mmol/L (21-32) 07/16/19 08:15 Anion Gap 6 MMOL/L (8-16) L 07/16/19 08:15 BUN 12.4 mg/dL (7-18) 07/16/19 08:15 Creatinine 0.9 mg/dL (0.55-1.3) 07/16/19 08:15 Est GFR (CKD-EPI)AfAm 77.77 07/16/19 08:15 Est GFR (CKD-EPI)NonAf 67.10 07/16/19 08:15 Random Glucose 64 mg/dL (74-106) L 07/16/19 08:15 Calcium 8.8 mg/dL (8.5-10.1) 07/16/19 08:15 Total Bilirubin 0.3 mg/dL (0.2-1) 07/16/19 08:15 AST 18 U/L (15-37) 07/16/19 08:15 ALT 24 U/L (13-61) 07/16/19 08:15 Alkaline Phosphatase 122 U/L (45-117) H 07/16/19 08:15 Total Protein 6.3 g/dl (6.4-8.2) L 07/16/19 08:15 Albumin 3.0 g/dl (3.4-5.0) L 07/16/19 08:15 RPR Titer Nonreactive (NONREACTIVE) 07/16/19 08:15 lab noted Assessment: 07/20/19 14:38 alcohol and benzo withdrawal sx Plan: continue librium detox regimen
[2019-07-20] MEDS: ATORVASTATIN CA 80 MG TABLET (FP) PO SCH (22:00)
[2019-07-20] MEDS: THIAMINE HCL 100 MG TABLET (FP) PO SCH (22:00)
[2019-07-21] MEDS: GABAPENTIN 300 MG CAPSULE (FP) PO SCH ×3 (05:00→22:18)
[2019-07-21] MEDS: METHADONE HCL 40 MG DISPERSABLE TABLET PO SCH (05:00)
[2019-07-21] MEDS: PRENATAL VITAMINS W/ FOLIC ACID TABLET (FP) PO SCH (09:58)
[2019-07-21] MEDS: ASPIRIN 81 MG CHEWABLE TABLETS PO SCH (09:58)
[2019-07-21] MEDS: NICOTINE 14 MG/24 HOURS TOPICAL PATCH TD SCH (09:58)
[2019-07-21] MEDS: amLODIPine BESYLATE 10 MG TABLET (FP) PO SCH (09:58)
[2019-07-21] MEDS: cloNIDine HCL 0.1 MG TABLET PO PRN ×2 (10:00→19:25)
--- NOTE | 2019-07-21 14:20 | DS ---
[facility] Detox Discharge Summary Admission Date: 07/15/19 Discharge Date: 07/21/19 - History Present History: Alcohol Dependence, Sedative Dependence Additional Comments: 64 years old female admitted on 07/15/19 for alcohol and benzo withdrawal sx management treated with librium detox regimen discuss aftercare with counselor that the patient agrees to go to [facility]hab facility for alcohol and benzo recovery patient is alert oriented x 3 ambulating with walker steady gait discontinue 1:1 - Physical Exam Results Vital Signs: Vital Signs Temperature 97.4 F L 07/21/19 14:01 Pulse Rate 53 L 07/21/19 14:01 Respiratory Rate 18 07/21/19 14:01 Blood Pressure 113/67 07/21/19 14:01 O2 Sat by Pulse Oximetry (%) - Treatment Hospital Course: Detox Protocol Followed, Detoxed Safely, Responded well, Discharged Condition Good, Rehab Referral Accepted - Medication Discharge Medications: Ambulatory Orders Gabapentin 600 mg PO TID 09/10/18 Atorvastatin Calcium [Lipitor] 20 mg PO DAILY 09/12/18 Aspirin 81 mg PO DAILY #14 tab.chew 09/19/18 Quetiapine Fumarate [Seroquel -] 200 mg PO BID #60 tablet 09/19/18 Albuterol Sulfate Inhaler - [Ventolin HFA Inhaler -] 2 puff IH Q4H PRN #1 inhaler 10/20/18 Amlodipine Besylate [Norvasc -] 10 mg PO DAILY #14 tablet 10/20/18 Methadone [Dolophine -] 160 mg PO DAILY 01/03/19 cloNIDine HCL [Catapres -] 0.3 mg PO BID 01/03/19 Pepcid 40 mg PO HS 01/07/19 Bupropion HCl [Wellbutrin Xl -] 300 mg PO DAILY #30 tab.sr.24h 01/10/19 Quetiapine Fumarate [Seroquel -] 150 mg PO HS #90 tablet 01/10/19 - AMA Did Patient Leave Against Medical Advice: No CIWA Score - CIWA Score Nausea/Vomitin-No Nausea/No Vomiting Muscle Tremors: 2 Anxiety: 0-No Anxiety, at Ease Agitation: 0-Normal Activity Paroxysmal Sweats: No Perspiration Orientation: 0-Oriented Tacttile Disturbances: 0-None Auditory Disturbances: 0-None Visual Disturbances: 0-None Headache: 1-Very Mild CIWA-Ar Total Score: 3
--- NOTE | 2019-07-21 16:09 | PN ---
S CIWA - CIWA Score Nausea/Vomitin-Mild Nausea/No Vomiting Muscle Tremors: 1-None Visible, but [place] Anxiety: 1-Mildly Anxious Agitation: 1-Slight > Activity Paroxysmal Sweats: No Perspiration Orientation: 0-Oriented Tacttile Disturbances: 0-None Auditory Disturbances: 0-None Visual Disturbances: 0-None Headache: 1-Very Mild CIWA-Ar Total Score: 5 [facility] Progress Note (SOAP) Subjective: 64 years old female admitted on 07/15/19 for alcohol and benzo withdrawal sx management treated with librium detox regimen patient tolerate well patient is alert oriented x 3 ambulating with walker from bed to bathroom steady gait Objective: 07/21/19 16:09 Vital Signs Temperature 97.4 F L 07/21/19 14:01 Pulse Rate 53 L 07/21/19 14:01 Respiratory Rate 18 07/21/19 14:01 Blood Pressure 113/67 07/21/19 14:01 O2 Sat by Pulse Oximetry (%) Laboratory Last Values WBC 6.0 K/mm3 (4.0-10.0) 07/16/19 08:15 RBC 3.98 M/mm3 (3.60-5.2) 07/16/19 08:15 Hgb 11.5 GM/dL (10.7-15.3) 07/16/19 08:15 Hct 35.4 % (32.4-45.2) 07/16/19 08:15 MCV 88.9 fl (80-96) 07/16/19 08:15 MCH 28.9 pg (25.7-33.7) 07/16/19 08:15 MCHC 32.6 g/dl (32.0-36.0) 07/16/19 08:15 RDW 14.7 % (11.6-15.6) 07/16/19 08:15 Plt Count 226 K/MM3 (134-434) 07/16/19 08:15 MPV 8.9 fl (7.5-11.1) 07/16/19 08:15 Sodium 144 mmol/L (136-145) 07/16/19 08:15 Potassium 4.0 mmol/L (3.5-5.1) 07/16/19 08:15 Chloride 106 mmol/L (98-107) 07/16/19 08:15 Carbon Dioxide 32 mmol/L (21-32) 07/16/19 08:15 Anion Gap 6 MMOL/L (8-16) L 07/16/19 08:15 BUN 12.4 mg/dL (7-18) 07/16/19 08:15 Creatinine 0.9 mg/dL (0.55-1.3) 07/16/19 08:15 Est GFR (CKD-EPI)AfAm 77.77 07/16/19 08:15 Est GFR (CKD-EPI)NonAf 67.10 07/16/19 08:15 Random Glucose 64 mg/dL (74-106) L 07/16/19 08:15 Calcium 8.8 mg/dL (8.5-10.1) 07/16/19 08:15 Total Bilirubin 0.3 mg/dL (0.2-1) 07/16/19 08:15 AST 18 U/L (15-37) 07/16/19 08:15 ALT 24 U/L (13-61) 07/16/19 08:15 Alkaline Phosphatase 122 U/L (45-117) H 07/16/19 08:15 Total Protein 6.3 g/dl (6.4-8.2) L 07/16/19 08:15 Albumin 3.0 g/dl (3.4-5.0) L 07/16/19 08:15 RPR Titer Nonreactive (NONREACTIVE) 07/16/19 08:15 lab noted Assessment: 07/21/19 16:09 alcohol and benzo withdrawal sx Plan: continue medically supervised 1:1 discontinued safe discharge pending aftercare
[2019-07-21] MEDS: hydrOXYzine PAMOATE 25 MG CAPSULE (FP) PO PRN (19:27)
[2019-07-21] MEDS: MELATONIN 5 MG TABLETS PO PRN (22:19)
[2019-07-21] MEDS: THIAMINE HCL 100 MG TABLET (FP) PO SCH (22:19)
[2019-07-21] MEDS: ATORVASTATIN CA 80 MG TABLET (FP) PO SCH (22:19)
[2019-07-22] MEDS: cloNIDine HCL 0.1 MG TABLET PO PRN (05:31)
[2019-07-22] MEDS: METHADONE HCL 40 MG DISPERSABLE TABLET PO SCH (05:31)
[2019-07-22] MEDS: GABAPENTIN 300 MG CAPSULE (FP) PO SCH (05:32)
[2019-07-22 09:16] VITALS: BP 134/70; PULSE 55; TEMP 97
[2019-07-22] MEDS: PRENATAL VITAMINS W/ FOLIC ACID TABLET (FP) PO SCH (10:24)
[2019-07-22] MEDS: amLODIPine BESYLATE 10 MG TABLET (FP) PO SCH (10:24)
[2019-07-22] MEDS: NICOTINE 14 MG/24 HOURS TOPICAL PATCH TD SCH (10:24)
[2019-07-22] MEDS: ASPIRIN 81 MG CHEWABLE TABLETS PO SCH (10:24)
--- NOTE | 2019-07-22 11:26 | DS ---
[facility] Detox Discharge Summary Admission Date: 07/15/19 Discharge Date: 07/22/19 - History Present History: Alcohol Dependence, Sedative Dependence Additional Comments: 64 years old female admitted on 07/15/19 for alcohol and benzo withdrawal sx management treated with librium detox regimen patient appears doing well ambulating on hallway with walker steady gait alert oriented x 3 respiratory clear lung bilaterally on auscultation abdomen soft no rebound tenderness skin warm dry Pertinent Past History: patient is going to [facility] with transportation arranged - Physical Exam Results Vital Signs: Vital Signs Temperature 97.0 F L 07/22/19 09:15 Pulse Rate 55 L 07/22/19 09:15 Respiratory Rate 18 07/22/19 09:15 Blood Pressure 134/70 07/22/19 09:15 O2 Sat by Pulse Oximetry (%) Pertinent Admission Physical Exam Findings: alcohol and benzo withdrawal sx Laboratory Laboratory Last Values WBC 6.0 K/mm3 (4.0-10.0) 07/16/19 08:15 RBC 3.98 M/mm3 (3.60-5.2) 07/16/19 08:15 Hgb 11.5 GM/dL (10.7-15.3) 07/16/19 08:15 Hct 35.4 % (32.4-45.2) 07/16/19 08:15 MCV 88.9 fl (80-96) 07/16/19 08:15 MCH 28.9 pg (25.7-33.7) 07/16/19 08:15 MCHC 32.6 g/dl (32.0-36.0) 07/16/19 08:15 RDW 14.7 % (11.6-15.6) 07/16/19 08:15 Plt Count 226 K/MM3 (134-434) 07/16/19 08:15 MPV 8.9 fl (7.5-11.1) 07/16/19 08:15 Sodium 144 mmol/L (136-145) 07/16/19 08:15 Potassium 4.0 mmol/L (3.5-5.1) 07/16/19 08:15 Chloride 106 mmol/L (98-107) 07/16/19 08:15 Carbon Dioxide 32 mmol/L (21-32) 07/16/19 08:15 Anion Gap 6 MMOL/L (8-16) L 07/16/19 08:15 BUN 12.4 mg/dL (7-18) 07/16/19 08:15 Creatinine 0.9 mg/dL (0.55-1.3) 07/16/19 08:15 Est GFR (CKD-EPI)AfAm 77.77 07/16/19 08:15 Est GFR (CKD-EPI)NonAf 67.10 07/16/19 08:15 Random Glucose 64 mg/dL (74-106) L 07/16/19 08:15 Calcium 8.8 mg/dL (8.5-10.1) 07/16/19 08:15 Total Bilirubin 0.3 mg/dL (0.2-1) 07/16/19 08:15 AST 18 U/L (15-37) 07/16/19 08:15 ALT 24 U/L (13-61) 07/16/19 08:15 Alkaline Phosphatase 122 U/L (45-117) H 07/16/19 08:15 Total Protein 6.3 g/dl (6.4-8.2) L 07/16/19 08:15 Albumin 3.0 g/dl (3.4-5.0) L 07/16/19 08:15 RPR Titer Nonreactive (NONREACTIVE) 07/16/19 08:15 lab noted - Treatment Hospital Course: Detox Protocol Followed, Detoxed Safely, Responded well, Discharged Condition Good, Rehab Referral Accepted Patient has Accepted a Rehab Referral to: [facility] - Medication Discharge Medications: Ambulatory Orders Gabapentin 600 mg PO TID 09/10/18 Atorvastatin Calcium [Lipitor] 20 mg PO DAILY 09/12/18 Aspirin 81 mg PO DAILY #14 tab.chew 09/19/18 Quetiapine Fumarate [Seroquel -] 200 mg PO BID #60 tablet 09/19/18 Albuterol Sulfate Inhaler - [Ventolin HFA Inhaler -] 2 puff IH Q4H PRN #1 inhaler 10/20/18 Amlodipine Besylate [Norvasc -] 10 mg PO DAILY #14 tablet 10/20/18 Methadone [Dolophine -] 160 mg PO DAILY 01/03/19 cloNIDine HCL [Catapres -] 0.3 mg PO BID 01/03/19 Pepcid 40 mg PO HS 01/07/19 Bupropion HCl [Wellbutrin Xl -] 300 mg PO DAILY #30 tab.sr.24h 01/10/19 Quetiapine Fumarate [Seroquel -] 150 mg PO HS #90 tablet 01/10/19 - Diagnosis (1) Benzedrine use disorder, mild Current Visit: Yes Status: Acute (2) Asthma Current Visit: Yes Status: Chronic Qualifiers: Asthma severity: mild Asthma persistence: intermittent Asthma complication type: unspecified Qualified Code(s): J45.20 - Mild intermittent asthma, uncomplicated (3) HLD (hyperlipidemia) Current Visit: Yes Status: Chronic Qualifiers: Hyperlipidemia type: unspecified Qualified Code(s): E78.5 - Hyperlipidemia , unspecified (4) HTN (hypertension) Current Visit: Yes Status: Chronic Qualifiers: Hypertension type: essential hypertension Qualified Code(s): I10 - Essential (primary) hypertension (5) Hep C w/ coma, chronic Current Visit: Yes Status: Chronic (6) Nicotine dependence Current Visit: Yes Status: Acute Qualifiers: Nicotine product type: cigarettes Substance use status: in withdrawal Qualified Code(s): F17.213 - Nicotine dependence, cigarettes, with withdrawal (7) Opioid dependence on agonist therapy Current Visit: Yes Status: Chronic (8) Substance induced mood disorder Current Visit: Yes Status: Suspected (9) Uses roller walker Current Visit: Yes Status: Chronic (10) Alcohol dependence Current Visit: Yes Status: Acute Qualifiers: Substance use status: uncomplicated Qualified Code(s): F10.20 - Alcohol dependence, uncomplicated (11) Neuropathy Current Visit: Yes Status: Chronic - AMA Did Patient Leave Against Medical Advice: No CIWA Score - CIWA Score Nausea/Vomitin-No Nausea/No Vomiting Muscle Tremors: 1-None Visible, but [place] Anxiety: 0-No Anxiety, at Ease Agitation: 0-Normal Activity Paroxysmal Sweats: No Perspiration Orientation: 0-Oriented Tacttile Disturbances: 0-None Auditory Disturbances: 0-None Visual Disturbances: 0-None Headache: 1-Very Mild CIWA-Ar Total Score: 2
== END 2019-07-22 12:06 | disposition home or self-care (01) | DRG 897 ==
LOC: YASAS 18:18 → Y3N 21:07
PROVIDERS: ADMIT Allergy & Immunology; ATTEND Allergy & Immunology
PROC: HZ2ZZZZ Detoxification Services for Substance Abuse Treatment (ICD-10-PCS; principal; 2019-07-15)
DX: F10.230 Alcohol dependence with withdrawal, uncomplicated (principal); F11.20 Opioid dependence, uncomplicated; F13.230 Sedative, hypnotic or anxiolytic dependence with withdrawal, uncomplicated; F17.213 Nicotine dependence, cigarettes, with withdrawal; F19.24 Other psychoactive substance dependence with psychoactive substance-induced mood disorder; F25.9 Schizoaffective disorder, unspecified; I10 Essential (primary) hypertension; E78.5 Hyperlipidemia, unspecified; J45.20 Mild intermittent asthma, uncomplicated; B18.2 Chronic viral hepatitis C; G62.9 Polyneuropathy, unspecified; D64.9 Anemia, unspecified; R29.6 Repeated falls; R26.2 Difficulty in walking, not elsewhere classified; M16.0 Bilateral primary osteoarthritis of hip; Z87.11 Personal history of peptic ulcer disease; Z96.653 Presence of artificial knee joint, bilateral; Z62.810 Personal history of physical and sexual abuse in childhood; Z99.89 Dependence on other enabling machines and devices; W18.39XA Other fall on same level, initial encounter; Z91.81 History of falling; Y93.89 Activity, other specified; Y92.230 Patient room in hospital as the place of occurrence of the external cause
CPT/HCPCS: 36415; 80053; 85027; 86593; 93005; 93010; J0735

== ENCOUNTER 2019-07-18 11:55 | Emergency (ER) | payer OTHER ==
[2019-07-18 12:03] VITALS: PULSE 54; TEMP 97.3; BMI 27.4
--- NOTE | 2019-07-18 13:28 | PDOC ---
Attending Attestation - Resident Resident Name: Jarad Blum - HPI HPI: 07/18/19 18:07 Pt presents to the ED complaining of R hip pain after unwitnessed fall at [facility]. Denies LOC. Patient uses a walker at baseline, and is ambulatory with help in the ED. - Physicial Exam PE: 07/18/19 18:11 Agree with resident exam. Patient is alert and oriented and in no acute distress. HEENT: normocephalic, atraumatic. CV: RRR No m/r/g Pulm: CTA b/l. Abdomen: soft, non tender, non distended. - Medical Decision Making 07/18/19 18:13 Pt presents to the ED complaining of R hip pain after fall. Sent from [facility] for unwitnessed fall protocol. CT head checked to rule out intracranial bleed and is negative Xray of the hip shows degenerative disease, but no acute findings. Patient is cleared for discharge to [facility].
--- NOTE | 2019-07-18 13:30 | PDOC ---
History of Present Illness - General Chief Complaint: Injury Stated Complaint: FALL Time Seen by Provider: 07/18/19 13:12 - History of Present Illness Initial Comments: 07/18/19 14:24 64 year old woman with a history of alchohol abuse and osteoarthritis who presents from [facility] with R hip and R hand pain after falling while trying to get from her walker to her bed. The patient reports that she was able to stand up again after her fall. ROS GENERAL/CONSTITUTIONAL: No fever or chills. No weakness. CARDIOVASCULAR: No chest pain or shortness of breath RESPIRATORY: No cough, wheezing, or hemoptysis. GASTROINTESTINAL: No nausea, vomiting, diarrhea or constipation. GENITOURINARY: No dysuria, frequency, or change in urination. MUSCULOSKELETAL: + joint or muscle swelling or pain. No neck or back pain. SKIN: No rash NEUROLOGIC: No headache, vertigo, loss of consciousness, or change in strength/ sensation. PE GENERAL: Awake, alert, and fully oriented, in no acute distress HEAD: No signs of trauma, normocephalic, atraumatic EYES: EOMI, sclera anicteric, conjunctiva clear ENT: oropharynx clear without exudates. Moist mucosa NECK: Normal ROM, supple LUNGS: No distress, speaks full sentences, clear to auscultation bilaterally HEART: Regular rate and rhythm, normal S1 and S2, no murmurs, rubs or gallops, peripheral pulses normal and equal bilaterally. ABDOMEN: Soft, nontender. No guarding, no rebound. No masses EXTREMITIES : Normal inspection, Normal range of motion, no edema. No clubbing or cyanosis. + R hip tenderness to palpation, No R hand tenderness to palpation , no scaphoid tenderness, NV intact on all extremitites NEUROLOGICAL: Cranial nerves II through XII grossly intact. Normal speech, no focal sensorimotor deficits SKIN: Warm, Dry, normal turgor, no rashes or lesions noted MDM DDX including but not limited to: msk vs fx W/U: - XR TX: - pain control ED Course: Patient ambulating and flexing the hip XR unremarkable patient feels improved and desires to return to [facility] Patient stable for discharge with sstrict return precautions Gabriela Chavis, PGY2 Emergency Medicine Past History - Past Medical History Allergies/Adverse Reactions: Allergies Allergy/AdvReac Type Severity Reaction Status Date / Time benztropine [From Radha] Allergy Verified 07/18/19 12:00 naloxone [From Narcan] AdvReac Verified 07/18/19 12:00 Home Medications: Ambulatory Orders Gabapentin 600 mg PO TID 09/10/18 Atorvastatin Calcium [Lipitor] 20 mg PO DAILY 09/12/18 Aspirin 81 mg PO DAILY #14 tab.chew 09/19/18 Quetiapine Fumarate [Seroquel -] 200 mg PO BID #60 tablet 09/19/18 Albuterol Sulfate Inhaler - [Ventolin HFA Inhaler -] 2 puff IH Q4H PRN #1 inhaler 10/20/18 Amlodipine Besylate [Norvasc -] 10 mg PO DAILY #14 tablet 10/20/18 Methadone [Dolophine -] 160 mg PO DAILY 01/03/19 cloNIDine HCL [Catapres -] 0.3 mg PO BID 01/03/19 Pepcid 40 mg PO HS 01/07/19 Bupropion HCl [Wellbutrin Xl -] 300 mg PO DAILY #30 tab.sr.24h 01/10/19 Quetiapine Fumarate [Seroquel -] 150 mg PO HS #90 tablet 01/10/19 Anemia: Yes (Ferous Sulfate) Asthma: No Cancer: No Cardiac Disorders: No CVA: No COPD: No CHF: No Dementia: No Diabetes: No GI Disorders: Yes (Pepcid) Disorders: No HTN: Yes (Clonidine, Norvasc) Hypercholesterolemia: Yes (Simvastatin) Kidney Stones: No Liver Disease: No Seizures: No Thyroid Disease: No - Surgical History Abdominal Surgery: No Appendectomy: No Cardiac Surgery: No Cholecystectomy: No Lung Surgery: No Neurologic Surgery: No Orthopedic Surgery: Yes (RIGHT KNEE 1994) - Reproductive History PID: No - Psycho Social/Smoking Cessation Hx Smoking History: Unknown if ever smoked Have you smoked in the past 12 months: Yes Number of Cigarettes Smoked Daily: 5 'Breaking Loose' booklet given: 07/15/19 Hx Alcohol Use: Yes Drug/Substance Use Hx: Yes (xanax,cocaine,alcohol) Substance Use Type: Alcohol, Cocaine Hx Substance Use Treatment: Yes ([facility]) *Physical Exam - Vital Signs Last Vital Signs Temp Pulse Resp BP Pulse Ox 97.3 F L 54 L 16 115/74 100 07/18/19 12:00 07/18/19 12:00 07/18/19 12:00 07/18/19 12:00 07/18/19 12:00 Discharge - Discharge Information Problems reviewed: Yes Clinical Impression/Diagnosis: Hip pain Condition: Stable Disposition: HOME - Admission No - Follow up/Referral - Patient Discharge Instructions Patient Printed Discharge Instructions: DI for Hip Pain Additional Instructions: You were seen in the ED for hip pain You had imaging that was unremarkable You may return to [facility] and take Tylenol and Motrin for pain control Return to the ED if you experience worsening hip pain, numbness, tingling, difficulty walking, or any other complaints. - Post Discharge Activity
[2019-07-18] MEDS ORDERED: ACETAMINOPHEN 325 MG TABLET (FP) PO ONE (13:31)
[2019-07-18] MEDS ORDERED: ACETAMINOPHEN 325 MG TABLET (FP) ONE (13:44)
[2019-07-18] MEDS ORDERED: KETOROLAC TROMETHAMINE 30 MG/1 ML VIAL IM ONE (16:14)
[2019-07-18] MEDS ORDERED: KETOROLAC TROMETHAMINE 30 MG/1 ML VIAL ONE (16:19)
[2019-07-18 18:42] VITALS: BP 110/62
== END 2019-07-18 19:58 | disposition home or self-care (01) ==
LOC: JER 11:55
PROC: 3E0233Z Introduction of Anti-inflammatory into Muscle, Percutaneous Approach (ICD-10-PCS; principal; 2019-07-18)
DX: S79.811A Other specified injuries of right hip, initial encounter (principal); M25.511 Pain in right shoulder; W18.39XA Other fall on same level, initial encounter; Y93.89 Activity, other specified; Y92.230 Patient room in hospital as the place of occurrence of the external cause; Y99.8 Other external cause status; D64.9 Anemia, unspecified; I10 Essential (primary) hypertension; F17.210 Nicotine dependence, cigarettes, uncomplicated; F10.10 Alcohol abuse, uncomplicated; F14.10 Cocaine abuse, uncomplicated; F13.10 Sedative, hypnotic or anxiolytic abuse, uncomplicated; Z87.19 Personal history of other diseases of the digestive system
CPT/HCPCS: 70450-TC; 72170-TC-FY; 73130-TC-RT-FY; 96372; 99281-25

== ENCOUNTER 2019-07-19 10:16 | Emergency (ER) | payer OTHER ==
[2019-07-19 10:23] VITALS: BMI 25.8
--- NOTE | 2019-07-19 10:33 | PDOC ---
*Physical Exam - Vital Signs Last Vital Signs Temp Pulse Resp BP Pulse Ox 97.8 F 54 L 16 115/77 100 07/19/19 10:19 07/19/19 10:19 07/19/19 10:19 07/19/19 10:19 07/19/19 10:19
--- NOTE | 2019-07-19 12:04 | PDOC ---
Attending Attestation - Resident Resident Name: Gabriela Chavis - ED Attending Attestation I have performed the following: I have examined & evaluated the patient, The case was reviewed & discussed with the resident, I agree w/resident's findings & plan, Exceptions are as noted - HPI HPI: 07/19/19 12:06 Ms Lizarraga is a 64 yo unemployed, homeless AA F h/o HTN, HLD, Asthma, untreated hep C, schizoaffective d/o, PUD, with severe osteoarthritis who is ambulatory with the assistance of a roller walker who presents from [facility] detox AGAIN for unwitnessed fall She was admitted to [facility] on 07/15 for alcohol and cocaine detox PT s/p fall on 07/18, sent to the ER for evaluation Pt returned to [facility] Pt s/p fall in the day room again, while transferring to a chair Staff at [facility] concerned because this patient will be discharged tomorrow and remains quite somnolent and there is concern about her discharge plan given her undomiciled status The patient presents to the ER screaming and agitated, Condition 10 called PMH: As above Social: Current every day smoker, (+) Alcohol Use (4 x 40oz), Cocaine (smoking, daily, 10 bags), Xanax prn, Amount used: 4 40 ounces of Beer. peptic ulcer disease and a history of bilateral knee replacement. 10/19/18 12:58 10/19/18 13:37 07/19/19 12:08 07/19/19 12:19 - Physicial Exam PE: 07/19/19 12:05 GENERAL: Aggressive and yelling when she first arrived, pt now calm and sleeping , Exam is limited due to patients lack of response HEAD: No signs of trauma EYES: pinpoint pupils, EOMI, sclera anicteric ENT: Moist mucosa NECK: Normal ROM, supple LUNGS: No distress, speaks full sentences, clear to auscultation bilaterally HEART: Regular rate and rhythm, normal S1 and S2, no murmurs, rubs or gallops, peripheral pulses normal and equal bilaterally. ABDOMEN: Soft, nontender. EXTREMITIES : Normal inspection, Normal range of motion, no edema. NEUROLOGICAL: Cranial nerves II through XII grossly intact. Normal speech, no focal sensorimotor deficits SKIN: Warm, Dry, normal turgor, no rashes or lesions noted 07/19/19 12:23 07/19/19 12:24 - Medical Decision Making 07/19/19 12:26 64 yo F s/p a fall pt noted to be weak at [facility] Will do: Labs EKG CT head Re Assess EKG: SR rate of 50 bpm, axis nml, intervals nml, no st elevation or depression 07/19/19 13:31 Laboratory Tests 07/19/19 07/19/19 07/19/19 11:57 11:57 11:57 WBC 5.1 Hgb 10.8 Hct 35.2 Plt Count Pending BUN 17.1 Creatinine 1[address] head D/c? 07/19/19 15:15 CT head- no evidence of acute intracranial pathology Will return to [facility]
--- NOTE | 2019-07-19 12:22 | PDOC ---
History of Present Illness - General Chief Complaint: Syncope/Near Syncope Stated Complaint: SYNCOPE Time Seen by Provider: 07/19/19 10:19 - History of Present Illness Initial Comments: 07/19/19 12:20 64 yo F w PMH of HTN, HLD, untreated hep C, unspecified GI d/o and schizophrenia , who presents from [facility] detox who presents with unwitnessed fall while trying to reach for her walker. The patient appeared lethargic. Patient is noncontributory with interview and exam as she was in and out of lethargy and becoming aggressive abd yelling. ROS - cannot be obtained 2/2 lethargy PE GENERAL: sleeping but arousable HEAD: No signs of trauma, normocephalic, atraumatic EYES: +pinpoint pupils, sclera anicteric, conjunctiva clear ENT: tongue out, food around mouth NECK: Normal ROM, supple LUNGS: No distress, speaks full sentences, clear to auscultation bilaterally HEART: Regular rate and rhythm, normal S1 and S2, no murmurs, rubs or gallops, peripheral pulses normal and equal bilaterally. ABDOMEN: Soft, nontender, No guarding, no rebound. No masses EXTREMITIES : Normal inspection, Normal range of motion, no edema. No clubbing or cyanosis. NEUROLOGICAL: Cranial nerves II through XII grossly intact. Normal speech, normal gait, no focal sensorimotor deficits SKIN: Warm, Dry, normal turgor, no rashes or lesions noted MDM DDX including but not limited to: falls 2/2 baseline walker requirement vs electrolyte derangement r/o metabolic encephalopathy patient with some lethargy and pinpoint pupils consider possible drug abuse W/U: - cbc, cmp, ammonia ED Course: ekg: sinus naun with qtc at 94bpm labs wnl, head ct negative p[atient stable to return to [facility] Gabriela Chavis, PGY2 Emergency Medicine Past History - Past Medical History Allergies/Adverse Reactions: Allergies Allergy/AdvReac Type Severity Reaction Status Date / Time benztropine [From Cogentin] Allergy Verified 07/19/19 10:22 naloxone [From Narcan] AdvReac Verified 07/19/19 10:22 Home Medications: Ambulatory Orders Gabapentin 600 mg PO TID 09/10/18 Atorvastatin Calcium [Lipitor] 20 mg PO DAILY 09/12/18 Aspirin 81 mg PO DAILY #14 tab.chew 09/19/18 Quetiapine Fumarate [Seroquel -] 200 mg PO BID #60 tablet 09/19/18 Albuterol Sulfate Inhaler - [Ventolin HFA Inhaler -] 2 puff IH Q4H PRN #1 inhaler 10/20/18 Amlodipine Besylate [Norvasc -] 10 mg PO DAILY #14 tablet 10/20/18 Methadone [Dolophine -] 160 mg PO DAILY 01/03/19 cloNIDine HCL [Catapres -] 0.3 mg PO BID 01/03/19 Pepcid 40 mg PO HS 01/07/19 Bupropion HCl [Wellbutrin Xl -] 300 mg PO DAILY #30 tab.sr.24h 01/10/19 Quetiapine Fumarate [Seroquel -] 150 mg PO HS #90 tablet 01/10/19 Anemia: Yes (Ferous Sulfate) Asthma: No Cancer: No Cardiac Disorders: No CVA: No COPD: No CHF: No Dementia: No Diabetes: No GI Disorders: Yes (Pepcid) Disorders: No HTN: Yes (Clonidine, Norvasc) Hypercholesterolemia: Yes (Simvastatin) Kidney Stones: No Liver Disease: No Seizures: No Thyroid Disease: No - Surgical History Abdominal Surgery: No Appendectomy: No Cardiac Surgery: No Cholecystectomy: No Lung Surgery: No Neurologic Surgery: No Orthopedic Surgery: Yes (RIGHT KNEE 1994) - Reproductive History PID: No - Immunization History Immunization Up to Date: Yes - Psycho Social/Smoking Cessation Hx Smoking History: Unknown if ever smoked Have you smoked in the past 12 months: No Number of Cigarettes Smoked Daily: 5 Information on smoking cessation initiated: No 'Breaking Loose' booklet given: 07/15/19 Hx Alcohol Use: Yes Drug/Substance Use Hx: Yes Substance Use Type: Alcohol, Cocaine Hx Substance Use Treatment: Yes ([facility]) *Physical Exam - Vital Signs Last Vital Signs Temp Pulse Resp BP Pulse Ox 97.8 F 54 L 16 115/77 96 07/19/19 10:19 07/19/19 10:19 07/19/19 10:19 07/19/19 10:19 07/19/19 10:33 ED Treatment Course - LABORATORY CBC & Chemistry Diagram: 07/19/19 11:57 07/19/19 11:57 - RADIOLOGY Radiology Studies Ordered: Category Date Time Status HEAD CT WITHOUT CONTRAST [CT] Stat CT Scan 10/26/19 12:11 Ordered Discharge - Discharge Information Problems reviewed: Yes Clinical Impression/Diagnosis: Fall Condition: Stable Disposition: HOME - Admission No - Follow up/Referral Referrals: Zach Trinidad [Primary Care Provider] - - Patient Discharge Instructions Patient Printed Discharge Instructions: How to Prevent Falls Additional Instructions: You were seen in the ED for a fall You had a head CT and labwork that was normal You may return to [facility] to continue rehab Please refrain from any recreational drug use Return to the ED if you experience loss of consciousness, chest pain, shortness of breath or any other concerning symptoms - Post Discharge Activity
[2019-07-19 12:28] LABS: BASO % 0.5 % (0-2.0); EOS % 3.4 % (0-4.5); HEMATOCRIT 35.2 % (32.4-45.2); HEMOGLOBIN 10.8 GM/dL (10.7-15.3); LYMPH % 27.2 % (8-40); MCH 27.8 pg (25.7-33.7); MCHC 30.8 g/dl (32.0-36.0); MEAN CELL VOLUME 90.3 fl (80-96); MEAN PLT VOLUME 9.3 fl (7.5-11.1); MONO % 10.8 % (3.8-10.2); NEUT % 58.1 % (42.8-82.8); PLATELET COUNT 183 K/MM3 (134-434); RDW 15.5 % (11.6-15.6); WHITE BLOOD COUNT 5.1 K/mm3 (4.0-10.0)
[2019-07-19 12:49] LABS: ALBUMIN 3.1 g/dl (3.4-5.0); BILIRUBIN,TOTAL 0.2 mg/dL (0.2-1); BLOOD UREA NITROGEN 17.1 mg/dL (7-18); CALCIUM 8.9 mg/dL (8.5-10.1); POTASSIUM 3.9 mmol/L (3.5-5.1); TOT PROT 6.4 g/dl (6.4-8.2)
[2019-07-19 14:12] LABS: PLATELET ESTIMATE ADEQUATE
[2019-07-19 17:25] VITALS: BP 142/70; PULSE 70; TEMP 98
--- NOTE | 2019-07-20 09:10 | EKG ---
Test Reason : Blood Pressure : / mmHG Vent. Rate : 050 BPM Atrial Rate : 050 BPM P-R Int : 148 ms QRS Dur : 094 ms QT Int : 540 ms P-R-T Axes : 034 044 044 degrees QTc Int : 492 ms SINUS BRADYCARDIA PROLONGED QT ABNORMAL ECG WHEN COMPARED WITH ECG OF 15-JUL-2019 22:31, ST NO LONGER DEPRESSED IN ANTERIOR LEADS Confirmed by RUFINO MTZ MD ([id number]) on 07/20/2019 9:10:36 AM Referred By: Confirmed By:RUFINO MTZ MD
--- NOTE | 2019-07-22 17:55 | PN ---
[facility] Progress Note Note: Psychiatry Attending's note (delayed): Marked improvement of mental status. Patient is observed moving around with walker. Steadier gait. Alert and fully oriented. No falls. Wellbutrin + seroquel were placed on hold (as precaution). Initiative discussed with the patient. She agreed with plan. Ms Lizarraga verbalized plan to discuss her medications with OPD psychiatrist.
== END 2019-07-19 17:26 | disposition home or self-care (01) ==
LOC: JER 10:16
DX: Y93.89 Activity, other specified (principal); Z04.3 Encounter for examination and observation following other accident; Y99.8 Other external cause status; W18.39XA Other fall on same level, initial encounter; Z91.81 History of falling; Y92.238 Other place in hospital as the place of occurrence of the external cause; I10 Essential (primary) hypertension; E78.5 Hyperlipidemia, unspecified; B18.2 Chronic viral hepatitis C; D64.9 Anemia, unspecified; F20.9 Schizophrenia, unspecified; F10.10 Alcohol abuse, uncomplicated; F14.10 Cocaine abuse, uncomplicated; F13.10 Sedative, hypnotic or anxiolytic abuse, uncomplicated; J45.909 Unspecified asthma, uncomplicated; K27.9 Peptic ulcer, site unspecified, unspecified as acute or chronic, without hemorrhage or perforation; M19.90 Unspecified osteoarthritis, unspecified site; Z99.89 Dependence on other enabling machines and devices; Z88.8 Allergy status to other drugs, medicaments and biological substances
CPT/HCPCS: 36415; 70450-TC; 80053; 82140; 85025; 93005; 93010; 99284-25